=== PATIENT | female | born 1980 | race Caucasian/White ===

== ENCOUNTER → 2017-09-05 | Outpatient (CLI) | payer MEDICARE, MEDICAID ==
[~2017-09-05] MED LIST: GADOBUTROL 7.5 MMOL/7.5 ML (GADAVIST) VIAL IV ONE
--- NOTE | 2017-09-05 11:44 | Diagnostic Imaging Report ---
INDICATION: Diagnosed with pituitary tumor in 2007. Patient denies surgery or other treatments. Patient currently complains of headache. The study is performed for further evaluation. TECHNIQUE: Pre-and post intravenous contrast multiplanar multisequence imaging of the brain was performed utilizing the pituitary protocol. COMPARISON: No prior studies are available for comparison. FINDINGS: The ventricles and sulci are within normal limits. No diffusion restriction is identified. The normal expected flow-voids within the carotid siphons are seen. No acute intra-axial or extra-axial hemorrhage is detected. The corpus callosum is unremarkable. Thin slice dynamic imaging through the sella turcica was performed. The infundibulum is midline. The superior borders of the pituitary gland are concave. No hypoenhancing mass is identified. No suprasellar mass is detected. There is minimal mucosal thickening of the right maxillary sinus. IMPRESSION: Essentially unremarkable MRI of the brain and pituitary. No definite pituitary mass is detected. Dictated by: Dictated on workstation # [id number]
== END ==
LOC: RAD 09:34
PROVIDERS: ATTEND Nurse Practitioner Family
DX: D35.2 Benign neoplasm of pituitary gland (principal); R51 Headache
CPT/HCPCS: 70553

== ENCOUNTER 2017-09-25 17:02 | Emergency (ER) | payer MEDICARE, MEDICAID ==
[~2017-09-25] VITALS: Ht 152.4 cm; Wt 65.8 kg
--- OUTSIDE RECORDS SUMMARY | 2017-09-25 17:10 | XMS REPORT ---
Author Author [facility] Organization [facility] Address [address] [place], [place] [id number] Care Team Providers Care Water Main Inspector Name Role Phone PCP Unavailable Allergies and Adverse Reactions Name Reaction Notes Morphine Sulfate vomiting PENICILLINS hives Reglan increases b/p Plan of Treatment Planned Activity Comments Planned Date Planned Time Plan/Goal Drug screen (amp, alexandra met, THC, opiates, PCP, janet, magdi, methadone, methaq, pro) 11/26/2014 12:00 AM ASSAY OF BLOOD/URIC ACID 12/10/2014 12:00 AM LACTATE (LD) (LDH) ENZYME 12/10/2014 12:00 AM Medications Active Name Start Date Estimated Completion Date SIG Comments Zofran ODT oral tablet,disintegrating 4 mg 05/08/2014 1 PO q 8 hrs prn nausea Zofran ODT oral tablet,disintegrating 4 mg 06/05/2014 1 PO q 8 hrs prn nausea Zofran ODT oral tablet,disintegrating 4 mg 08/05/2014 1 PO q 8 hrs prn nausea Gummy oral tablet,chewable 400 mcg-35 mg -25 mg-5 mg 11/18/2014 chew 1 tablet by oral route daily oxycodone oral capsule 5 mg take 1 capsule (5 mg) by oral route every 6 hours as needed for pain Levaquin oral tablet 750 mg 12/19/2014 12/23/2014 take 1 tablet (750 mg) by oral route once daily for 4 days Name Start Date Expiration Date SIG Comments Zithromax Z-Aurelio Oral tablet 250 mg 08/21/2012 08/26/2012 take 2 tablets (500 mg) by oral route once daily for 1 day then 1 tablet (250 mg) by oral route once daily for 4 days Keflex oral capsule 500 mg 07/30/2013 08/06/2013 take 1 capsule (500 mg) by oral route every 6 hours for 7 days ZOFRAN ODT oral tablet,disintegrating 4 mg 08/06/2013 dissolve 1 tablet by oral route every 6 hours as needed ibuprofen oral tablet 800 mg 08/16/2013 09/15/2013 take 1 tablet (800 mg) by oral route 3 times per day with food prn pain clindamycin HCl oral capsule 300 mg 08/21/2013 08/28/2013 take 1 capsule (300 mg) by oral route 3 times per day for 7 days Levaquin oral tablet 750 mg 08/21/2013 08/24/2013 take 1 tablet (750 mg) by oral route once daily for 3 days oxycodone oral capsule 5 mg 09/05/2013 09/19/2013 take 1-2 capsule (5-10 mg) by oral route every 8 hours as needed for pain Diflucan oral tablet 150 mg 09/19/2013 09/21/2013 take 1 tablet (150 mg) by oral route once for 1 day Ultram oral tablet 50 mg 11/20/2013 take 1 tablet (50 mg) by oral route every 4-6 hours as needed Pt is receiving Suboxone from a specialist in [place] baclofen oral tablet 20 mg 03/22/2014 04/21/2014 take 1 tablet by oral route 3 times a day as needed for 30 days Keflex oral capsule 500 mg 04/02/2014 04/12/2014 take 1 capsule (500 mg) by oral route every 12 hours for 10 days amoxicillin oral capsule 500 mg 04/30/2014 05/07/2014 take 1 capsule (500 mg) by oral route 3 times per day for 7 days Diflucan oral tablet 150 mg 05/03/2014 take 1 tablet (150 mg) by oral route once Vitamin B-6 oral tablet 50 mg 05/08/2014 09/05/2014 take 1 tablet by oral route daily for 30 days azithromycin oral tablet 250 mg 06/09/2014 06/14/2014 take 2 tablets (500 mg) by oral route once, then 1 tab daily for 4 days amoxicillin oral capsule 500 mg 07/25/2014 08/01/2014 take 1 capsule (500 mg ) by oral route every 8 hours for 7 days Zithromax Z-Aurelio oral tablet 250 mg 10/31/2014 11/05/2014 take 2 tablets (500 mg) by oral route once daily for 1 day then 1 tablet (250 mg) by oral route once daily for 4 days Discontinued Name Start Date Discontinued Date SIG Comments Esgic-Plus Oral tablet 50-500-40 mg 08/25/2012 06/07/2013 take 1 tablet by oral route every 4 hours as needed not to exceed 6 tablets per 24hrs Keflex Oral capsule 500 mg 06/05/2013 06/13/2013 take 1 capsule by oral route 2 times a day for 10 days OxyContin Oral tablet extended release 12 hr 10 mg 06/13/2013 take 1 tablet by oral route every 12 hours as needed for migraine headache ranitidine HCl oral capsule 150 mg 06/27/2013 08/31/2013 take 1 capsule (150 mg) by oral route 2 times per day for 30 days ursodiol oral tablet 500 mg 07/02/2013 07/25/2013 take 1 tablet by oral route 2 times a day oxycodone Oral capsule 5 mg 07/10/2013 07/25/2013 take 1 capsules (5 mg) by oral route every 12 hours as needed for pain Dilaudid oral tablet 2 mg 07/25/2013 take 1 tablet (2 mg) by oral route every 4 hours as needed Vistaril oral capsule 25 mg 09/21/2013 05/08/2014 take 1-2 capsules by oral route 3 times a day as needed promethazine oral tablet 25 mg 03/05/2014 05/08/2014 take 1 tablet (25 mg) by oral route every 4-6 hours as needed nicotine transdermal patch 24 hour 21 mg/24 hr 03/12/2014 05/08/2014 apply 1 patch (21 mg) by transdermal route once daily for 4 weeks hydrocodone-ibuprofen oral tablet 5-200 mg 03/22/2014 03/22/2014 take 1 tablet by oral route every 8 hours as needed Migraines K-Tracs showed Suboxone use. Pt brought script back. Suboxone sublingual film 8-2 mg 06/20/2014 place 1 film by sublingual route once daily allow to dissolve slowly in mouth without chewing or swallowing bisacodyl rectal suppository 10 mg 05/08/2014 06/20/2014 insert 1 suppository (10 mg) by rectal route once daily as needed for constipation buprenorphine HCl sublingual tablet, sublingual 8 mg 12/10/2014 place 1 tablet (8 mg) by sublingual route once daily allow to dissolve slowly in mouth without chewing or swallowing for 30 days Zovirax topical ointment 5 % 07/29/2014 09/12/2014 apply to affected area by external route 3 times a day prochlorperazine maleate oral tablet 5 mg 07/29/2014 09/12/2014 1 tab q 6 hrs prn nausea/vomiting Zofran ODT oral tablet,disintegrating 4 mg 09/09/2014 12/10/2014 1 PO Q 8 HRS PRN NAUSEA Amitiza oral capsule 24 mcg 12/10/2014 take 1 capsule (24 mcg) by oral route 2 times per day with food and water Fioricet oral capsule 50-300-40 mg 09/12/2014 12/10/2014 take 1 capsule by oral route every 12 hours as needed for headache. ondansetron oral tablet,disintegrating 4 mg 09/25/2014 11/06/2014 DISSOLVE ONE TABLET IN MOUTH EVERY 8 HOURS NEEDED FOR NAUSEA ranitidine HCl oral capsule 150 mg 10/15/2014 12/19/2014 take 1 capsule (150 mg) by oral route 2 times per day ferrous sulfate oral tablet 325 mg (65 mg iron) 10/24/2014 12/19/2014 take 1 tablet by oral route daily prochlorperazine maleate oral tablet 5 mg 11/20/2014 12/10/2014 take 1 tablet by oral route every 6 hours as needed promethazine oral tablet 25 mg 11/20/2014 12/19/2014 take 1 tablet by oral route qhs prn Nausea amoxicillin oral capsule 500 mg 12/01/2014 12/10/2014 take 2 capsule (1000 mg) by oral route every 12 hours for 10 days Problem List Description Status Onset Migraine Active Hepatitis C Infection Active 06/13/2013 Bipolar disorder, unspecified Active 06/13/2013 wound cellulitis Active Wound Infection, Postop Active Substance Abuse Active 09/19/2013 Vital Signs Date Time BP-Sys(mm[Hg] BP-Preeti(mm[Hg]) HR(bpm) RR(rpm) Temp WT HT HC BMI BSA BMI Percentile O2 Sat(%) 12/19/2014 1:44:00 PM 126 mmHg 85 mmHg 84 bpm 18 rpm 98.2 F 12/10/2014 2:20:00 PM 141 mmHg 88 mmHg 77 bpm 96.4 F 169 lbs 59 in 34.1335 kg/m 1.7864 m 12/01/2014 3:20:00 PM 120 mmHg 78 mmHg 73 bpm 16 rpm 96.7 F 170.25 lbs 59 in 34.39 kg/m2 1.79 m2 98 % 10/31/2014 11:57:00 AM 124 mmHg 70 mmHg 97 bpm 18 rpm 96.9 F 168.125 lbs 59 in 33.9568 kg/m 1.7817 m 98 % 07/25/2014 5:54:00 PM 94 mmHg 58 mmHg 74 bpm 16 rpm 9.4 F 167.5 lbs 59 in 33.83 kg/m2 1.78 m2 99 % 06/09/2014 2:52:00 PM 114 mmHg 70 mmHg 77 bpm 16 rpm 97 F 171 lbs 59 in 34.5375 kg/m 1.7969 m 100 % 05/08/2014 1:51:00 PM 139 mmHg 78 mmHg 84 bpm 96.5 F 174 lbs 59 in 35.14 kg/m2 1.81 m2 05/03/2014 11:50:00 AM 130 mmHg 70 mmHg 83 bpm 18 rpm 175.375 lbs 59 in 35.4211 kg/m 1.8197 m 100 % 04/30/2014 1:52:00 PM 120 mmHg 72 mmHg 86 bpm 18 rpm 97.8 F 172.375 lbs 59 in 34.82 kg/m2 1.80 m2 99 % 03/22/2014 11:08:00 AM 150 mmHg 85 mmHg 87 bpm 20 rpm 97.4 F 183 lbs 59 in 36.9611 kg/m 1.8589 m 98 % 03/12/2014 3:40:00 PM 102 mmHg 70 mmHg 63 bpm 18 rpm 96.9 F 178.375 lbs 59 in 36.03 kg/m2 1.84 m2 98 % 01/15/2014 1:07:00 PM 122 mmHg 78 mmHg 70 bpm 18 rpm 97.7 F 158 lbs 59 in 31.9118 kg/m 1.7272 m 100 % 11/05/2013 1:45:00 PM 122 mmHg 88 mmHg 84 bpm 18 rpm 97.3 F 146.6 lbs 59 in 29.61 kg/m2 1.66 m2 100 % 09/19/2013 3:11:00 PM 118 mmHg 77 mmHg 75 bpm 96.8 F 142 lbs 59 in 28.6802 kg/m 1.6375 m 08/31/2013 8:57:00 AM 100 mmHg 74 mmHg 64 bpm 96.7 F 151 lbs 59 in 30.50 kg/m2 1.69 m2 08/16/2013 2:19:00 PM 127 mmHg 90 mmHg 81 bpm 96.7 F 155 lbs 59 in 31.3059 kg/m 1.7108 m 08/09/2013 11:35:00 AM 130 mmHg 69 mmHg 68 bpm 97.7 F 155 lbs 59 in 31.31 kg/m2 1.71 m2 08/03/2013 9:01:00 AM 131 mmHg 81 mmHg 73 bpm 97.6 F 157.5 lbs 59 in 31.8108 kg/m 1.7245 m 07/30/2013 1:45:00 PM 126 mmHg 75 mmHg 84 bpm 96.5 F 159 lbs 59 in 32.11 kg/m2 1.73 m2 07/25/2013 1:32:00 PM 121 mmHg 77 mmHg 86 bpm 96.7 F 165 lbs 59 in 33.3256 kg/m 1.7651 m 07/10/2013 1:56:00 PM 129 mmHg 79 mmHg 90 bpm 97.7 F 171 lbs 59 in 34.54 kg/m2 1.80 m2 06/07/2013 3:08:00 PM 139 mmHg 71 mmHg 86 bpm 96.5 F 175 lbs 59 in 35.3454 kg/m 1.8178 m 06/05/2013 10:19:00 AM 119 mmHg 80 mmHg 104 bpm 20 rpm 96.8 F 173 lbs 59 in 34.94 kg/m2 1.81 m2 99 % 08/21/2012 2:27:00 PM 122 mmHg 78 mmHg 71 bpm 20 rpm 96.7 F 141.8 lbs 59 in 28.6398 kg/m 1.6363 m 100 % Social History Name Description Comments Single Alcohol social use Tobacco Current every day smoker History of Procedures Date Ordered Description Order Status 08/21/2012 12:00 AM US EXAM ABDOM COMPLETE Returned 08/21/2012 12:00 AM COMPLETE CBC W/AUTO DIFF WBC Returned 08/21/2012 12:00 AM COMPREHEN METABOLIC PANEL Returned 08/21/2012 12:00 AM ASSAY OF AMYLASE Returned 08/21/2012 12:00 AM ASSAY OF LIPASE Returned 08/21/2012 12:00 AM ASSAY THYROID STIM HORMONE Returned 08/21/2012 12:00 AM LIPID PANEL Returned 08/31/2012 12:00 AM HEPATIC FUNCTION PANEL Returned 08/31/2012 12:00 AM ACUTE HEPATITIS PANEL Returned 06/05/2013 12:00 AM URINALYSIS AUTO W/O SCOPE Reviewed 06/05/2013 12:00 AM URINALYSIS AUTO W/SCOPE Returned 06/07/2013 12:00 AM LACTATE (LD) (LDH) ENZYME Returned 06/07/2013 12:00 AM ASSAY OF BLOOD/URIC ACID Returned 06/07/2013 12:00 AM COMPLETE CBC W/AUTO DIFF WBC Returned 06/07/2013 12:00 AM COMPREHEN METABOLIC PANEL Returned 06/13/2013 12:00 AM Urine drug screen Returned 06/07/2013 12:00 AM COMPLETE CBC W/AUTO DIFF WBC Returned 06/07/2013 12:00 AM COMPREHEN METABOLIC PANEL Returned 06/07/2013 12:00 AM LACTATE (LD) (LDH) ENZYME Reviewed 06/07/2013 12:00 AM ASSAY OF BLOOD/URIC ACID Returned 06/20/2013 12:00 AM BIOPHYS PROFIL W/O NST Returned 06/20/2013 12:00 AM AMNIOTIC FLUID SCAN Reviewed 06/20/2013 12:00 AM COMPLETE CBC W/AUTO DIFF WBC Returned 06/20/2013 12:00 AM COMPREHEN METABOLIC PANEL Returned 06/20/2013 12:00 AM ASSAY OF BLOOD/URIC ACID Returned 06/20/2013 12:00 AM ASSAY OF LDH ENZYMES Returned 06/27/2013 12:00 AM COMPLETE CBC W/AUTO DIFF WBC Returned 06/27/2013 12:00 AM COMPREHEN METABOLIC PANEL Returned 06/27/2013 12:00 AM ASSAY OF BLOOD/URIC ACID Returned 06/27/2013 12:00 AM ASSAY OF LDH ENZYMES Returned 07/04/2013 12:00 AM OB US >/=14 WKS SNGL FETUS Returned 07/02/2013 12:00 AM COMPLETE CBC W/AUTO DIFF WBC Returned 07/02/2013 12:00 AM COMPREHEN METABOLIC PANEL Returned 07/02/2013 12:00 AM LACTATE (LD) (LDH) ENZYME Reviewed 07/02/2013 12:00 AM ASSAY OF BLOOD/URIC ACID Returned 07/02/2013 12:00 AM BILE ACIDS TOTAL Returned 07/10/2013 12:00 AM COMPLETE CBC W/AUTO DIFF WBC Returned 07/10/2013 12:00 AM COMPREHEN METABOLIC PANEL Returned 07/10/2013 12:00 AM Type and screen Returned 07/30/2013 12:00 AM CULTURE OTHR SPECIMN AEROBIC Returned 09/19/2013 12:00 AM Urine drug screen Reviewed 01/15/2014 12:00 AM THER/PROPH/DIAG INJ SC/IM Reviewed 01/28/2014 12:00 AM CHORIONIC GONADOTROPIN TEST Returned 03/12/2014 12:00 AM BEHAV CHNG SMOKING 3-10 MIN Reviewed 03/22/2014 12:[address] HEAD/BRAIN W/DYE Returned 04/17/2014 2:37 PM URINE TEST Reviewed 05/15/2014 12:00 AM TRANSVAGINAL US OBSTETRIC Reviewed 05/15/2014 12:00 AM OB US < 14 WKS SINGLE FETUS Returned 05/08/2014 12:00 AM N.GONORRHOEAE DNA AMP PROB Returned 05/08/2014 12:00 AM CHLAMYDIA CULTURE Returned 05/08/2014 12:00 AM HIV-1ANTIBODY Returned 05/08/2014 12:00 AM CYTOPATH C/V THIN LAYER Returned 05/08/2014 12:00 AM URINALYSIS AUTO W/SCOPE Returned 05/08/2014 12:00 AM OBSTETRIC PANEL Returned 05/08/2014 12:00 AM Urine Drug Screen Returned 05/08/2014 12:00 AM SPECIMEN HANDLING OFFICE-LAB Reviewed 05/23/2014 12:00 AM COMPREHEN METABOLIC PANEL Returned 05/23/2014 12:00 AM HEPATITIS C REVRS [id number] Returned 05/23/2014 12:00 AM Urine Drug Screen Returned 09/12/2014 12:00 AM OB US LIMITED FETUS(S) Returned 10/10/2014 12:00 AM GLUCOSE TEST Returned 10/10/2014 12:00 AM COMPLETE CBC W/AUTO DIFF WBC Returned 10/10/2014 12:00 AM Type and screen Returned 10/10/2014 12:00 AM COMPREHEN METABOLIC PANEL Returned 10/10/2014 12:00 AM HEPATITIS C REVRS [id number] Returned 10/24/2014 12:00 AM BIOPHYS PROFIL W/O NST Returned 10/24/2014 12:00 AM AMNIOTIC FLUID SCAN Returned 10/24/2014 12:00 AM COMPREHEN METABOLIC PANEL Returned 10/24/2014 12:00 AM BILE ACIDS TOTAL Returned 11/06/2014 12:00 AM COMPLETE CBC W/AUTO DIFF WBC Reviewed 11/06/2014 12:00 AM COMPREHEN METABOLIC PANEL Reviewed 11/06/2014 12:00 AM HEPATITIS C REVRS [id number] Reviewed 11/06/2014 12:00 AM MASS SPECTROMETRY QUANT Reviewed 11/20/2014 12:00 AM CULTURE OTHR SPECIMN AEROBIC Returned 12/10/2014 12:00 AM DRUG SCREEN CLASS LIST A Returned 12/10/2014 12:00 AM COMPLETE CBC W/AUTO DIFF WBC Returned 12/10/2014 12:00 AM COMPREHEN METABOLIC PANEL Returned Results Summary Data and Description Results 09/05/2012 9:20 AM WBC 7.6 RBC 4.88 HGB 13.80 g/dLHCT 41.70 %MCV 86.0 fLMCH 28.30 pgMCHC 33.10 g/dLRDW CV 14.10 %MPV 9.90 fLPLT 256 %NEUT 61.80 %%LYMP 27.80 %%MONO 3.90 %%EOS 6.20 %%BASO 0.30 %#NEUT 4.71 #LYMP 2.12 #MONO 0.30 #EOS 0.47 #BASO 0.02 GLUCOSE 91.0 mg/dLSODIUM 140.0 mmol/LPOTASSIUM 4.50 mmol/ LCHLORIDE 110.0 mmol/LCO2 22.0 mmol/LBUN 14.0 mg/dLCREATININE 0.80 mg/dLSGOT/ AST 16.0 IU/LSGPT/ALT 17.0 IU/LALK PHOS 83.0 IU/LTOTAL PROTEIN 7.0 g/dLALBUMIN 4.20 g/dLTOTAL BILI 0.30 mg/dLCALCIUM 9.50 mg/dLeGFR 60 AMYLASE 79 IU/ LTRIGLYCERIDES 91.0 mg/dLCHOLESTEROL 168.0 mg/dLHDL 38.0 mg/dLLDL (CALC) 112.0 mg/dLDIRECT BILI 0.10 mg/dLLIPASE 24.0 U/LTSH 4.230 uIU/mL 06/05/2013 8:28 PM COLOR DK YELLOW APPEARANCE HAZY SPEC GRAV 1.015 pH 6.5 PROTEIN NEGATIVE GLUCOSE NEGATIVE KETONE TRACE BILIRUBIN LARGE BLOOD MODERATE NITRITE NEGATIVE LEUK SCREEN NEGATIVE CASTS/LPF NEGATIVE CRYSTALS TRACE CA OX MUCOUS THRDS FEW BACTERIA 1+ EPITH CELLS 2++ SQUAMOUS TRICHOMONAS NEGATIVE YEAST NEGATIVE 06/07/2013 6:15 PM ACETAMINOPHEN <3.00 UG/MLDIRECT BILI 2.60 mg/dLAMYLASE 35 IU/LLIPASE <4 U/LGLUCOSE 81.0 mg/dLSODIUM 133.0 mmol/LPOTASSIUM 3.70 mmol/ LCHLORIDE 101.0 mmol/LCO2 26.0 mmol/LBUN 5.0 mg/dLCREATININE 0.60 mg/dLSGOT/AST 176.0 IU/LSGPT/ALT 531.0 IU/LALK PHOS 300.0 IU/LTOTAL PROTEIN 5.60 g/dLALBUMIN 2.70 g/dLTOTAL BILI 3.20 mg/dLCALCIUM 8.60 mg/dLeGFR >60 mL/min/1.73 m2WBC 12.1 RBC 3.83 HGB 10.50 g/dLHCT 31.90 %MCV 83.0 fLMCH 27.40 pgMCHC 32.90 g/dLRDW CV 14.30 %MPV 11.50 fLPLT 138 %NEUT 53.70 %%LYMP 34.40 %%MONO 7.80 %%EOS 3.90 %% BASO 0.20 %#NEUT 6.48 #LYMP 4.16 #MONO 0.94 #EOS 0.47 #BASO 0.03 06/07/2013 7:45 PM PROTIME 10.20 secsINR 1.0 PTT 28.30 secsLDH 354.0 IU/LURIC ACID 5.5 mg/dL 06/13/2013 2:58 PM GLUCOSE 93.0 mg/dLSODIUM 139.0 mmol/LPOTASSIUM 5.0 mmol/ LCHLORIDE 105.0 mmol/LCO2 24.0 mmol/LBUN 8.0 mg/dLCREATININE 0.70 mg/dLSGOT/AST 114.0 IU/LSGPT/ALT 170.0 IU/LALK PHOS 361.0 IU/LTOTAL PROTEIN 7.50 g/dLALBUMIN 3.80 g/dLTOTAL BILI 1.60 mg/dLCALCIUM 9.10 mg/dLeGFR >60 mL/min/1.73 m2URIC ACID 4.7 mg/dLLDH 285.0 IU/LWBC 12.9 RBC 4.20 HGB 11.50 g/dLHCT 36.30 %MCV 86.0 fLMCH 27.40 pgMCHC 31.70 g/dLRDW CV 15.10 %MPV 10.90 fLPLT 424 %NEUT 53.20 %% LYMP 32.20 %%MONO 10.90 %%EOS 3.50 %%BASO 0.20 %#NEUT 6.84 #LYMP 4.15 #MONO 1.40 #EOS 0.45 #BASO 0.03 EOS 1.0 % 06/20/2013 5:20 PM WBC 11.3 RBC 4.14 HGB 11.40 g/dLHCT 35.80 %MCV 87.0 fLMCH 27.50 pgMCHC 31.80 g/dLRDW CV 15.10 %MPV 10.60 fLPLT 369 %NEUT 61.50 %%LYMP 25.60 %%MONO 10.40 %%EOS 2.30 %%BASO 0.20 %#NEUT 6.95 #LYMP 2.89 #MONO 1.18 # EOS 0.26 #BASO 0.02 URIC ACID 5.5 mg/dLGLUCOSE 90.0 mg/dLSODIUM 136.0 mmol/ LPOTASSIUM 4.0 mmol/LCHLORIDE 105.0 mmol/LCO2 22.0 mmol/LBUN 8.0 mg/ dLCREATININE 0.70 mg/dLSGOT/AST 50.0 IU/LSGPT/ALT 67.0 IU/LALK PHOS 205.0 IU/ LTOTAL PROTEIN 6.90 g/dLALBUMIN 3.60 g/dLTOTAL BILI 0.80 mg/dLCALCIUM 9.30 mg/ dLeGFR >60 mL/min/1.73 m2 06/29/2013 12:00 PM WBC 9.2 RBC 4.13 HGB 11.50 g/dLHCT 35.30 %MCV 86.0 fLMCH 27.80 pgMCHC 32.60 g/dLRDW CV 14.90 %MPV 11.30 fLPLT 232 %NEUT 59.90 %%LYMP 27.80 %%MONO 6.80 %%EOS 5.30 %%BASO 0.20 %#NEUT 5.52 #LYMP 2.57 #MONO 0.63 #EOS 0.49 #BASO 0.02 URIC ACID 4.9 mg/dLGLUCOSE 104.0 mg/dLSODIUM 139.0 mmol/ LPOTASSIUM 3.90 mmol/LCHLORIDE 107.0 mmol/LCO2 22.0 mmol/LBUN 9.0 mg/ dLCREATININE 0.70 mg/dLSGOT/AST 45.0 IU/LSGPT/ALT 65.0 IU/LALK PHOS 199.0 IU/ LTOTAL PROTEIN 7.0 g/dLALBUMIN 3.50 g/dLTOTAL BILI 0.60 mg/dLCALCIUM 10.20 mg/ dLeGFR >60 mL/min/1.73 m2 07/02/2013 7:49 PM LDH 199.0 IU/LURIC ACID 5.0 mg/dLGLUCOSE 91.0 mg/dLSODIUM 136.0 mmol/LPOTASSIUM 3.70 mmol/LCHLORIDE 108.0 mmol/LCO2 21.0 mmol/LBUN 8.0 mg/ dLCREATININE 0.70 mg/dLSGOT/AST 34.0 IU/LSGPT/ALT 58.0 IU/LALK PHOS 204.0 IU/ LTOTAL PROTEIN 6.70 g/dLALBUMIN 3.30 g/dLTOTAL BILI 0.60 mg/dLCALCIUM 9.30 mg/ dLeGFR >60 mL/min/1.73 m2WBC 11.0 RBC 3.82 HGB 10.60 g/dLHCT 32.70 %MCV 86.0 fLMCH 27.70 pgMCHC 32.40 g/dLRDW CV 15.10 %MPV 11.40 fLPLT 212 %NEUT 61.60 %% LYMP 27.80 %%MONO 6.70 %%EOS 3.70 %%BASO 0.20 %#NEUT 6.75 #LYMP 3.04 #MONO 0.73 #EOS 0.41 #BASO 0.02 07/16/2013 2:30 PM WBC 9.7 RBC 4.22 HGB 11.50 g/dLHCT 36.10 %MCV 86.0 fLMCH 27.30 pgMCHC 31.90 g/dLRDW CV 15.50 %MPV 11.20 fLPLT 285 %NEUT 71.40 %%LYMP 19.30 %%MONO 6.0 %%EOS 3.10 %%BASO 0.20 %#NEUT 6.94 #LYMP 1.88 #MONO 0.58 #EOS 0.30 #BASO 0.02 GLUCOSE 121.0 mg/dLSODIUM 136.0 mmol/LPOTASSIUM 3.70 mmol/ LCHLORIDE 108.0 mmol/LCO2 20.0 mmol/LBUN 8.0 mg/dLCREATININE 0.70 mg/dLSGOT/AST 20.0 IU/LSGPT/ALT 17.0 IU/LALK PHOS 225.0 IU/LTOTAL PROTEIN 6.30 g/dLALBUMIN 3.0 g/dLTOTAL BILI 0.30 mg/dLCALCIUM 9.50 mg/dLeGFR >60 mL/min/1.73 m2ABO/Rh Type O Positive 07/17/2013 12:35 PM GLUCOSE 87.0 mg/dLSODIUM 136.0 mmol/LPOTASSIUM 3.70 mmol/ LCHLORIDE 108.0 mmol/LCO2 20.0 mmol/LBUN 7.0 mg/dLCREATININE 0.60 mg/dLSGOT/AST 21.0 IU/LSGPT/ALT 13.0 IU/LALK PHOS 178.0 IU/LTOTAL PROTEIN 5.20 g/dLALBUMIN 2.40 g/dLTOTAL BILI 0.40 mg/dLCALCIUM 8.90 mg/dLeGFR >60 mL/min/1.73 m2WBC 15.5 RBC 3.66 HGB 9.90 g/dLHCT 31.20 %MCV 85.0 fLMCH 27.0 pgMCHC 31.70 g/dLRDW CV 15.60 %MPV 11.10 fLPLT 260 07/17/2013 4:00 PM WBC 16.4 RBC 3.33 HGB 9.20 g/dLHCT 28.30 %MCV 85.0 fLMCH 27.60 pgMCHC 32.50 g/dLRDW CV 15.50 %MPV 11.10 fLPLT 251 07/18/2013 7:35 AM WBC 10.9 RBC 2.58 HGB 7.20 g/dLHCT 22.0 %MCV 85.0 fLMCH 27.90 pgMCHC 32.70 g/dLRDW CV 15.80 %MPV 11.0 fLPLT 235 07/18/2013 8:55 AM ABO/Rh Recheck O Positive 07/18/2013 4:55 PM WBC 12.6 RBC 3.33 HGB 9.30 g/dLHCT 28.10 %MCV 84.0 fLMCH 27.90 pgMCHC 33.10 g/dLRDW CV 15.0 %MPV 10.90 fLPLT 221 07/19/2013 8:20 AM WBC 12.0 RBC 3.19 HGB 8.90 g/dLHCT 27.0 %MCV 85.0 fLMCH 27.90 pgMCHC 33.0 g/dLRDW CV 15.20 %MPV 10.40 fLPLT 236 GLUCOSE 111.0 mg/ dLSODIUM 135.0 mmol/LPOTASSIUM 3.90 mmol/LCHLORIDE 106.0 mmol/LCO2 20.0 mmol/ LBUN 8.0 mg/dLCREATININE 0.60 mg/dLSGOT/AST 24.0 IU/LSGPT/ALT 14.0 IU/LALK PHOS 137.0 IU/LTOTAL PROTEIN 5.20 g/dLALBUMIN 2.40 g/dLTOTAL BILI 0.40 mg/dLCALCIUM 8.50 mg/dLeGFR >60 mL/min/1.73 m2 08/03/2013 10:30 AM BETA HCG QUANT 8.0 mIU/mL 08/03/2013 12:30 PM WBC 6.7 RBC 4.19 HGB 11.30 g/dLHCT 36.10 %MCV 86.0 fLMCH 27.0 pgMCHC 31.30 g/dLRDW CV 15.0 %MPV 9.0 fLPLT 352 %NEUT 63.40 %%LYMP 28.60 %% MONO 5.0 %%EOS 2.70 %%BASO 0.30 %#NEUT 4.22 #LYMP 1.90 #MONO 0.33 #EOS 0.18 # BASO 0.02 GLUCOSE 107.0 mg/dLSODIUM 142.0 mmol/LPOTASSIUM 4.0 mmol/LCHLORIDE 110.0 mmol/LCO2 21.0 mmol/LBUN 10.0 mg/dLCREATININE 0.80 mg/dLSGOT/AST 20.0 IU/ LSGPT/ALT 16.0 IU/LALK PHOS 121.0 IU/LTOTAL PROTEIN 6.50 g/dLALBUMIN 3.30 g/ dLTOTAL BILI 0.40 mg/dLCALCIUM 8.80 mg/dLeGFR >60 mL/min/1.73 m2 01/28/2014 3:25 PM BETA HCG QUANT <1 MIU/ML 04/17/2014 2:37 PM HCG Ur Ql positive 05/08/2014 3:20 PM WBC 6.8 RBC 4.48 HGB 12.70 g/dLHCT 37.70 %MCV 84.0 fLMCH 28.30 pgMCHC 33.70 g/dLRDW CV 14.0 %MPV 10.30 fLPLT 254 %NEUT 57.20 %%LYMP 31.20 %%MONO 8.20 %%EOS 3.10 %%BASO 0.30 %#NEUT 3.90 #LYMP 2.13 #MONO 0.56 #EOS 0.21 #BASO 0.02 HIV AG/AB COMBO 0.15 HBsAg Screen Negative 05/08/2014 5:14 PM COLOR YELLOW APPEARANCE CLEAR SPEC GRAV >=1.030 pH 6.0 PROTEIN NEGATIVE GLUCOSE NEGATIVE KETONE NEGATIVE BILIRUBIN NEGATIVE BLOOD NEGATIVE NITRITE NEGATIVE LEUK SCREEN NEGATIVE CASTS/LPF NEGATIVE CRYSTALS NEGATIVE MUCOUS THRDS NEGATIVE BACTERIA FEW EPITH CELLS FEW SQUAMOUS TRICHOMONAS NEGATIVE YEAST NEGATIVE 05/24/2014 1:10 PM GLUCOSE 89.0 mg/dLSODIUM 135.0 mmol/LPOTASSIUM 3.70 mmol/ LCHLORIDE 104.0 mmol/LCO2 21.0 mmol/LBUN 10.0 mg/dLCREATININE 0.70 mg/dLSGOT/ AST 27.0 IU/LSGPT/ALT 46.0 IU/LALK PHOS 98.0 IU/LTOTAL PROTEIN 7.30 g/dLALBUMIN 4.10 g/dLTOTAL BILI 0.20 mg/dLCALCIUM 9.60 mg/dLeGFR 60 10/18/2014 3:15 PM WBC 10.5 RBC 3.86 HGB 10.50 g/dLHCT 32.80 %MCV 85.0 fLMCH 27.20 pgMCHC 32.0 g/dLRDW CV 13.60 %MPV 10.70 fLPLT 210 %NEUT 67.90 %%LYMP 22.40 %%MONO 6.30 %%EOS 3.20 %%BASO 0.20 %#NEUT 7.14 #LYMP 2.35 #MONO 0.66 #EOS 0.34 #BASO 0.02 GLUCOSE 98.0 mg/dLSODIUM 138.0 mmol/LPOTASSIUM 3.70 mmol/ LCHLORIDE 106.0 mmol/LCO2 22.0 mmol/LBUN 7.0 mg/dLCREATININE 0.60 mg/dLSGOT/AST 45.0 IU/LSGPT/ALT 47.0 IU/LALK PHOS 181.0 IU/LTOTAL PROTEIN 6.20 g/dLALBUMIN 3.0 g/dLTOTAL BILI 0.20 mg/dLCALCIUM 8.30 mg/dLeGFR >60 mL/min/1.73 m2 10/28/2014 11:20 AM GLUCOSE 105.0 mg/dLSODIUM 136.0 mmol/LPOTASSIUM 4.0 mmol/ LCHLORIDE 107.0 mmol/LCO2 19.0 mmol/LBUN 7.0 mg/dLCREATININE 0.60 mg/dLSGOT/AST 29.0 IU/LSGPT/ALT 35.0 IU/LALK PHOS 208.0 IU/LTOTAL PROTEIN 6.30 g/dLALBUMIN 3.0 g/dLTOTAL BILI 0.20 mg/dLCALCIUM 8.50 mg/dLeGFR >60 mL/min/1.73 m2 11/19/2014 5:36 PM WBC 8.9 RBC 4.23 HGB 11.0 g/dLHCT 34.90 %MCV 83.0 fLMCH 26.0 pgMCHC 31.50 g/dLRDW CV 14.50 %MPV 11.20 fLPLT 237 %NEUT 68.10 %%LYMP 24.90 %%MONO 5.40 %%EOS 1.50 %%BASO 0.10 %#NEUT 6.09 #LYMP 2.22 #MONO 0.48 #EOS 0.13 #BASO 0.01 GLUCOSE 85.0 mg/dLSODIUM 136.0 mmol/LPOTASSIUM 4.50 mmol/ LCHLORIDE 105.0 mmol/LCO2 22.0 mmol/LBUN 9.0 mg/dLCREATININE 0.60 mg/dLSGOT/AST 32.0 IU/LSGPT/ALT 43.0 IU/LALK PHOS 328.0 IU/LTOTAL PROTEIN 6.80 g/dLALBUMIN 3.20 g/dLTOTAL BILI 0.20 mg/dLCALCIUM 9.0 mg/dLeGFR >60 mL/min/1.73 m2 12/10/2014 3:35 PM WBC 8.0 RBC 4.23 HGB 10.70 g/dLHCT 33.90 %MCV 80.0 fLMCH 25.30 pgMCHC 31.60 g/dLRDW CV 15.20 %MPV 11.90 fLPLT 204 %NEUT 67.90 %%LYMP 23.80 %%MONO 6.20 %%EOS 1.90 %%BASO 0.20 %#NEUT 5.43 #LYMP 1.91 #MONO 0.50 #EOS 0.15 #BASO 0.02 URIC ACID 6.6 mg/dLLDH 189.0 IU/LGLUCOSE 80.0 mg/dLSODIUM 135.0 mmol/LPOTASSIUM 4.20 mmol/LCHLORIDE 108.0 mmol/LCO2 20.0 mmol/LBUN 9.0 mg/ dLCREATININE 0.70 mg/dLSGOT/AST 20.0 IU/LSGPT/ALT 17.0 IU/LALK PHOS 504.0 IU/ LTOTAL PROTEIN 6.40 g/dLALBUMIN 2.30 g/dLTOTAL BILI 0.40 mg/dLCALCIUM 9.0 mg/ dLeGFR >60 mL/min/1.73 m2 12/11/2014 11:42 PM Cannabinoids (THC) NEGATIVE Phencyclidine (PCP) NEGATIVE Cocaine NEGATIVE Methamphetamine NEGATIVE Opiates NEGATIVE Amphetamine NEGATIVE Benzodiazepines NEGATIVE Methadone NEGATIVE Barbiturates NEGATIVE Oxycodone NEGATIVE Propoxyphene (PPX) NEGATIVE 12/12/2014 7:50 AM WBC 17.3 RBC 3.42 HGB 8.70 g/dLHCT 27.40 %MCV 80.0 fLH 25.40 pgMCHC 31.80 g/dLRDW CV 15.40 %MPV 10.90 fLPLT 201 %NEUT 81.90 %%LYMP 12.90 %%MONO 4.80 %%EOS 0.30 %%BASO 0.10 %#NEUT 14.13 #LYMP 2.23 #MONO 0.83 # EOS 0.06 #BASO 0.02 GLUCOSE 113.0 mg/dLSODIUM 134.0 mmol/LPOTASSIUM 4.40 mmol/ LCHLORIDE 109.0 mmol/LCO2 19.0 mmol/LBUN 10.0 mg/dLCREATININE 0.70 mg/dLSGOT/ AST 22.0 IU/LSGPT/ALT 12.0 IU/LALK PHOS 374.0 IU/LTOTAL PROTEIN 4.50 g/ dLALBUMIN 2.20 g/dLTOTAL BILI 0.30 mg/dLCALCIUM 8.0 mg/dLeGFR >60 mL/min/1.73 m2 12/12/2014 2:05 PM WBC 14.5 RBC 2.87 HGB 7.30 g/dLHCT 23.10 %MCV 81.0 fLMCH 25.40 pgMCHC 31.60 g/dLRDW CV 15.30 %MPV 10.90 fLPLT 174 %NEUT 84.70 %%LYMP 9.20 %%MONO 5.90 %%EOS 0.10 %%BASO 0.10 %#NEUT 12.24 #LYMP 1.33 #MONO 0.86 #EOS 0.02 #BASO 0.02 12/12/2014 3:00 PM GLUCOSE 115.0 mg/dLSODIUM 132.0 mmol/LPOTASSIUM 5.20 mmol/ LCHLORIDE 105.0 mmol/LCO2 21.0 mmol/LBUN 11.0 mg/dLCREATININE 0.70 mg/dLCALCIUM 7.80 mg/dLeGFR >60 mL/min/1.73 m2 12/12/2014 10:05 PM WBC 11.9 RBC 3.38 HGB 9.0 g/dLHCT 28.0 %MCV 83.0 fLMCH 26.60 pgMCHC 32.10 g/dLRDW CV 16.10 %MPV 11.30 fLPLT 178 %NEUT 83.30 %%LYMP 12.0 %%MONO 4.50 %%EOS 0.10 %%BASO 0.10 %#NEUT 9.89 #LYMP 1.42 #MONO 0.53 #EOS 0.01 #BASO 0.01 PROTIME 9.40 secsINR 0.9 PTT 27.10 secsFIBRINOGEN 432.0 mg/dL 12/13/2014 7:10 AM WBC 11.8 RBC 3.03 HGB 8.20 g/dLHCT 24.90 %MCV 82.0 fLMCH 27.10 pgMCHC 32.90 g/dLRDW CV 16.20 %MPV 11.70 fLPLT 191 %NEUT 82.10 %%LYMP 12.80 %%MONO 4.90 %%EOS 0.10 %%BASO 0.10 %#NEUT 9.69 #LYMP 1.51 #MONO 0.58 #EOS 0.01 #BASO 0.01 GLUCOSE 92.0 mg/dLSODIUM 135.0 mmol/LPOTASSIUM 4.30 mmol/ LCHLORIDE 107.0 mmol/LCO2 21.0 mmol/LBUN 7.0 mg/dLCREATININE 0.60 mg/dLSGOT/AST 20.0 IU/LSGPT/ALT 11.0 IU/LALK PHOS 268.0 IU/LTOTAL PROTEIN 4.70 g/dLALBUMIN 2.10 g/dLTOTAL BILI 0.30 mg/dLCALCIUM 8.0 mg/dLeGFR >60 mL/min/1.73 m2 12/13/2014 8:00 AM PROTIME 9.40 secsINR 0.9 PTT 28.50 secsFIBRINOGEN 470.0 mg/dL 12/13/2014 12:05 PM PROTIME 9.30 secsINR 0.9 PTT 28.90 secsFIBRINOGEN 488.0 mg/ dLWBC 11.3 RBC 3.01 HGB 8.10 g/dLHCT 24.80 %MCV 82.0 fLMCH 26.90 pgMCHC 32.70 g/ dLRDW CV 16.0 %MPV 11.0 fLPLT 187 %NEUT 83.70 %%LYMP 10.70 %%MONO 5.40 %%EOS 0.10 %%BASO 0.10 %#NEUT 9.48 #LYMP 1.21 #MONO 0.61 #EOS 0.01 #BASO 0.01 GLUCOSE 97.0 mg/dLSODIUM 138.0 mmol/LPOTASSIUM 4.40 mmol/LCHLORIDE 108.0 mmol/LCO2 22.0 mmol/LBUN 7.0 mg/dLCREATININE 0.60 mg/dLSGOT/AST 18.0 IU/LSGPT/ALT 12.0 IU/LALK PHOS 284.0 IU/LTOTAL PROTEIN 4.30 g/dLALBUMIN 2.20 g/dLTOTAL BILI 0.30 mg/ dLCALCIUM 7.80 mg/dLeGFR >60 mL/min/1.73 m2 12/14/2014 7:30 AM WBC 12.3 RBC 2.72 HGB 7.30 g/dLHCT 22.60 %MCV 83.0 fLMCH 26.80 pgMCHC 32.30 g/dLRDW CV 16.60 %MPV 10.60 fLPLT 217 %NEUT 86.50 %%LYMP 9.0 %%MONO 4.20 %%EOS 0.20 %%BASO 0.10 %#NEUT 10.63 #LYMP 1.11 #MONO 0.51 #EOS 0.02 #BASO 0.01 GLUCOSE 85.0 mg/dLSODIUM 136.0 mmol/LPOTASSIUM 4.20 mmol/LCHLORIDE 107.0 mmol/LCO2 22.0 mmol/LBUN 11.0 mg/dLCREATININE 0.60 mg/dLSGOT/AST 19.0 IU/ LSGPT/ALT 7.0 IU/LALK PHOS 230.0 IU/LTOTAL PROTEIN 4.90 g/dLALBUMIN 2.20 g/ dLTOTAL BILI 0.50 mg/dLCALCIUM 7.90 mg/dLeGFR >60 mL/min/1.73 m2 12/15/2014 7:10 AM GLUCOSE 92.0 mg/dLSODIUM 137.0 mmol/LPOTASSIUM 3.90 mmol/ LCHLORIDE 107.0 mmol/LCO2 20.0 mmol/LBUN 16.0 mg/dLCREATININE 0.60 mg/dLSGOT/ AST 25.0 IU/LSGPT/ALT 12.0 IU/LALK PHOS 231.0 IU/LTOTAL PROTEIN 5.20 g/ dLALBUMIN 2.30 g/dLTOTAL BILI 1.10 mg/dLCALCIUM 8.10 mg/dLeGFR >60 mL/min/1.73 m2WBC 9.5 RBC 3.23 HGB 8.80 g/dLHCT 27.20 %MCV 84.0 fLMCH 27.20 pgMCHC 32.40 g/ dLRDW CV 16.50 %MPV 10.90 fLPLT 240 %NEUT 80.20 %%LYMP 12.40 %%MONO 6.60 %%EOS 0.60 %%BASO 0.20 %#NEUT 7.64 #LYMP 1.18 #MONO 0.63 #EOS 0.06 #BASO 0.02 12/16/2014 6:05 AM GLUCOSE 108.0 mg/dLSODIUM 139.0 mmol/LPOTASSIUM 3.40 mmol/ LCHLORIDE 107.0 mmol/LCO2 21.0 mmol/LBUN 12.0 mg/dLCREATININE 0.60 mg/dLCALCIUM 8.20 mg/dLeGFR >60 mL/min/1.73 m2WBC 9.3 RBC 3.62 HGB 9.90 g/dLHCT 30.70 %MCV 85.0 fLMCH 27.30 pgMCHC 32.20 g/dLRDW CV 16.50 %MPV 10.20 fLPLT 310 %NEUT 74.60 %%LYMP 17.0 %%MONO 5.90 %%EOS 2.30 %%BASO 0.20 %#NEUT 6.96 #LYMP 1.59 #MONO 0.55 #EOS 0.21 #BASO 0.02 EOS 3.0 % History Of Immunizations Name Date Admin Mfg Name Mfg Code Trade Name Lot# Route Inj Vis Given Vis Pub CVX Influenza 06/06/2014 sanofi pasteur PMC Fluzone [id number] Intramuscular Left Deltoid 06/06/2014 03/26/2014 141 History of Past Illness Name Date of Onset Comments Migraine Pituitary tumor Hepatitis C Infection 06/13/2013 Bipolar disorder, unspecified 06/13/2013 Substance Abuse 09/19/2013 Sinusitis, Acute Aug 21 2012 2:30PM Upper Respiratory Infections Aug 21 2012 2:30PM Abdominal Pain, LUQ Aug 21 2012 2:30PM Pituitary Gland Disorder Aug 21 2012 2:30PM Thyroid Disorder Aug 21 2012 2:30PM Screening for Ischemic Heart Disease Aug 21 2012 2:30PM Hepatomegaly Aug 31 2012 8:15AM Carrier or suspected carrier of hepatitis C Sep 06 2012 9:16AM Hepatitis C Infection Oct 30 2012 10:22AM Hematuria Jun 05 2013 10:25AM Lumbar Pain Jun 05 2013 10:25AM Suprapubic Pain Jun 05 2013 10:25AM History of Intrauterine growth restriction: High Risk Jun 07 2013 3:22PM Hepatitis C Infection Jun 07 2013 3:22PM Bipolar disorder, unspecified Jun 07 2013 3:22PM Abdominal Pain, RUQ Jun 07 2013 3:22PM Hepatitis C Infection Jun 13 2013 2:38PM Hepatitis C Infection Jun 13 2013 2:51PM History of Intrauterine growth restriction: High Risk Jun 13 2013 2:51PM , High Risk Jun 14 2013 11:41AM Hepatitis C Infection Jun 14 2013 11:41AM Hepatitis C Infection Jun 20 2013 4:33PM History of Intrauterine growth restriction: High Risk Jun 20 2013 4:33PM Migraine Jun 20 2013 4:33PM Hepatitis C Infection Jun 27 2013 3:23PM History of Intrauterine growth restriction: High Risk Jun 27 2013 3:23PM Migraine Jun 27 2013 3:23PM , High Risk Jun 27 2013 3:56PM Hepatitis C Infection Jun 27 2013 3:56PM Hepatitis C Infection Jul 02 2013 12:42PM History of Intrauterine growth restriction: High Risk Jul 02 2013 12:42PM Elevated liver enzymes Jul 02 2013 12:42PM Previous /Undelivered Jul 10 2013 1:55PM , High Risk Jul 10 2013 1:55PM Elevated liver enzymes Jul 10 2013 1:55PM Hepatitis C Infection Jul 10 2013 1:55PM History of Intrauterine growth restriction: High Risk Jul 10 2013 1:55PM Anemia Jul 10 2013 1:55PM Migraine Jul 10 2013 1:55PM Cholestasis of Jul 10 2013 1:55PM Postoperative Visit Jul 25 2013 1:39PM wound cellulitis Jul 25 2013 1:39PM Postoperative Visit Jul 30 2013 1:50PM wound cellulitis Jul 30 2013 1:50PM Cellulitis and abscess; abdomen Jul 30 2013 3:15PM Postoperative Visit Aug 03 2013 10:03AM Cellulitis and abscess; abdomen Aug 03 2013 10:03AM Wound Infection, Postop Aug 03 2013 9:04AM Postoperative Visit Aug 09 2013 11:39AM Cellulitis and abscess; abdomen Aug 09 2013 11:39AM Postoperative Visit Aug 16 2013 2:26PM Cellulitis and abscess; abdomen Aug 16 2013 2:26PM Postoperative Visit Aug 31 2013 9:03AM Cellulitis and abscess; abdomen Aug 31 2013 9:03AM Candidiasis, Vulvovaginal Sep 19 2013 3:19PM Resolved Cellulitis and abscess; abdomen Sep 19 2013 3:19PM Hepatitis C Infection Sep 19 2013 3:19PM Substance Abuse Sep 19 2013 3:19PM Migraine Nov 05 2013 1:47PM Hepatitis C Infection Nov 05 2013 1:47PM Migraine Jan 15 2014 1:09PM Amenorrhea, Rule Out Jan 28 2014 2:28PM Sinus infection Mar 12 2014 3:43PM Dental caries Mar 12 2014 3:43PM Tobacco abuse counseling Mar 12 2014 3:43PM Migraine Mar 22 2014 11:12AM Amenorrhea Apr 17 2014 2:37PM Sinusitis Apr 30 2014 1:59PM Yeast infection May 03 2014 11:54AM Care, High Risk May 08 2014 1:58PM Subchorionic bleed, first trimester May 08 2014 1:58PM Hx of substance abuse May 08 2014 1:58PM Subchorionic hemorrhage in first trimester May 09 2014 9:31AM Hepatitis C Infection May 08 2014 1:58PM Substance Abuse May 08 2014 1:58PM Migraine May 08 2014 1:58PM Care, High Risk May 23 2014 9:30AM HCV (hepatitis C virus) May 23 2014 9:30AM History of drug abuse May 24 2014 10:40AM Flu Vaccine Jun 06 2014 12:00PM Pansinusitis, Acute Jun 09 2014 2:59PM Headache Jun 09 2014 2:59PM Acute sinusitis Jul 25 2014 5:59PM Single umbilical artery Aug 15 2014 1:03PM , High Risk Oct 10 2014 3:32PM Hepatitis C Oct 10 2014 3:32PM , High Risk Oct 11 2014 10:50AM Hepatitis C Oct 11 2014 10:50AM Elevated liver enzymes Oct 24 2014 2:17PM Hepatitis C Infection Oct 24 2014 2:17PM Substance Abuse Oct 24 2014 2:17PM Upper Respiratory Infections Oct 31 2014 11:57AM , High Risk Nov 06 2014 4:01PM Hepatitis C Nov 06 2014 4:01PM Group B Strep Screening, Nov 20 2014 10:54AM Hx of drug abuse Nov 26 2014 12:03PM Maxillary Sinusitis, Acute Dec 01 2014 3:23PM Pansinusitis, Acute Dec 01 2014 3:23PM Acute Pharyngitis Dec 01 2014 3:23PM Cough Dec 01 2014 3:23PM Previous /Undelivered Dec 10 2014 2:22PM Hx of drug abuse Dec 10 2014 4:36PM Migraine Dec 10 2014 2:22PM Hepatitis C Dec 10 2014 2:22PM Drug abuse of mother, third trimester Dec 10 2014 2:22PM Postoperative Examination Following Surgery Dec 19 2014 1:50PM Payers Insurance Name Company Name Plan Name Plan Number Policy Number Policy Group Number Start Date Medicare Part A Medicare Part A [id number] N/A [facility] Comm [id number] Tuesday, 2012 Medicare Part B Medicare Of [place] [id number] N/A [facility] [place] [facility] Plan of [id number] N/A History of Encounters Visit Date Visit Type Provider 12/19/2014 Office visit Gena Arias SLOT TECHNICIAN 12/11/2014 Hospital Julio Arizmendi MD 12/11/2014 [facility] Rama Lay MD 12/10/2014 Office visit Julio Arizmendi MD 12/01/2014 Office visit Jeannie Henao SLOT TECHNICIAN 11/26/2014 Office visit Gena Arias SLOT TECHNICIAN 11/20/2014 Office visit Julio Arizmendi MD 11/06/2014 Office visit Julio Arizmendi MD 10/31/2014 Office visit Renetta Chaves SLOT TECHNICIAN 10/24/2014 Office visit Julio Arizmendi MD 10/10/2014 Office visit Julio Arizmendi MD 09/12/2014 Office visit Julio Arizmendi MD 08/14/2014 Office visit Julio Arizmendi MD 07/25/2014 Office visit Gordon Sainz SLOT TECHNICIAN 07/17/2014 Office visit Julio Arizmendi MD 06/20/2014 Office visit Julio Arizmendi MD 06/09/2014 Office visit Jeannie Henao SLOT TECHNICIAN 06/06/2014 Nurse visit Gordon Sainz SLOT TECHNICIAN 05/23/2014 Office visit Julio Arizmendi MD 05/08/2014 Office visit Julio Arizmendi MD 05/03/2014 Office visit Gordon Sainz SLOT TECHNICIAN 04/30/2014 Office visit Gordon Sainz SLOT TECHNICIAN 04/17/2014 Office visit Julio Arizmendi MD 03/22/2014 Office visit Gordon Sainz SLOT TECHNICIAN 03/12/2014 Office visit Gordon Sainz SLOT TECHNICIAN 01/15/2014 Office visit Juana Owens SLOT TECHNICIAN 11/05/2013 Office visit Juana Owens SLOT TECHNICIAN 09/19/2013 Office visit Julio Arizmendi MD 08/31/2013 Office visit Julio Arizmendi MD 08/16/2013 Office visit Julio Arizmendi MD 08/09/2013 Office visit Julio Arizmendi MD 08/03/2013 Office visit Gena Arias SLOT TECHNICIAN 08/03/2013 [facility] Julio Arizmendi MD 07/30/2013 Office visit Julio Arizmendi MD 07/25/2013 Office visit Julio Arizmendi MD 07/17/2013 [facility] Julio Arizmendi MD 07/17/2013 [facility] Rama Lay MD 07/10/2013 Office visit Julio Arizmendi MD 07/02/2013 Office visit Julio Arizmendi MD 06/27/2013 Office visit Julio Arizmendi MD 06/20/2013 Office visit Julio Arizmendi MD 06/13/2013 Office visit Julio Arizmendi MD 06/07/2013 Office visit Julio Arizmendi MD 06/07/2013 [facility] Julio Arizmendi MD 06/05/2013 Office visit Juana Owens APRN 08/21/2012 Office visit Juana Owens APRN
--- OUTSIDE RECORDS SUMMARY | 2017-09-25 17:12 | XMS REPORT ---
Author Author [facility] Organization [facility] Address [address] [place], [place] [id number] Care Team Providers Care Ostrich Farmer Name Role Phone PCP Unavailable Allergies and Adverse Reactions Name Reaction Notes Morphine Sulfate vomiting PENICILLINS hives Reglan increases b/p Plan of Treatment Planned Activity Comments Planned Date Planned Time Plan/Goal Drug screen (amp, alexandra met, THC, opiates, PCP, janet, magdi, methadone, methaq, pro) 11/26/2014 12:00 AM ASSAY OF BLOOD/URIC ACID 12/10/2014 12:00 AM LACTATE (LD) (LDH) ENZYME 12/10/2014 12:00 AM COMPLETE CBC W/AUTO DIFF WBC 12/31/2014 12:00 AM COMPREHEN METABOLIC PANEL 12/31/2014 12:00 AM Medications Active Name Start Date Estimated Completion Date SIG Comments Zofran ODT oral tablet,disintegrating 4 mg 05/08/2014 1 PO q 8 hrs prn nausea Zofran ODT oral tablet,disintegrating 4 mg 06/05/2014 1 PO q 8 hrs prn nausea Zofran ODT oral tablet,disintegrating 4 mg 08/05/2014 1 PO q 8 hrs prn nausea oxycodone oral capsule 5 mg 12/31/2014 01/14/2015 take 1 capsule (5 mg) by oral route every 6 hours as needed for pain for 14 days Name Start Date Expiration Date SIG [...] is receiving Suboxone from a specialist in [place] baclofen oral tablet 20 mg 03/22/2014 04/21/2014 [...] oral route once daily for 4 days Gummy oral tablet,chewable 400 mcg-35 mg -25 mg-5 mg 11/18/2014 chew 1 tablet by oral route daily Levaquin oral tablet 750 mg 12/19/2014 12/23/2014 take 1 tablet (750 mg) by oral route once daily for 4 days Levaquin oral tablet 750 mg 12/23/2014 12/30/2014 take 1 tablet (750 mg) by oral route once daily for 7 days Discontinued Name Start Date Discontinued Date [...] HC BMI BSA BMI Percentile O2 Sat(%) 12/31/2014 3:18:00 PM 130 mmHg 83 mmHg 88 bpm 98 F 144 lbs 59 in 29.08 kg/m2 1.65 m2 12/23/2014 10:04:00 AM 142 mmHg 101 mmHg 69 bpm 97.7 F 150 lbs 59 in 30.296 kg/m 1.683 m 12/19/2014 1:44:00 PM 126 mmHg 85 mmHg [...] 3.42 HGB 8.70 g/dLHCT 27.40 %MCV 80.0 fLMCH 25.40 pgMCHC 31.80 g/dLRDW CV 15.40 %MPV [...] % History Of Immunizations Name Date Admin Mf Name Mfg Code Trade Name Lot# Route Inj Vis Given Vis Pub CVX Influenza 06/06/2014 sanofi pasteur PMC Fluzone [id number] Intramuscular Left Deltoid 06/06/2014 03/26/2014 141 History [...] Examination Following Surgery Dec 19 2014 1:50PM Postoperative Visit Dec 23 2014 10:08AM Cellulitis Dec 23 2014 10:08AM Postoperative Visit Dec 31 2014 3:22PM Cellulitis Improving Dec 31 2014 3:22PM Hepatitis C Dec 31 2014 3:22PM Payers Insurance Name Company Name Plan Name Plan Number Policy Number Policy Group Number Start Date Medicare Part A Medicare Part A [id number] N/A [facility] Comm [id number] Tuesday, 2012 Medicare Part B Medicare Of [place] [id number] N/A [facility] Community [facility] Comm Plan of [id number] N/A History of Encounters Visit Date Visit Type Provider 12/31/2014 Office visit Julio Arizmendi MD 12/23/2014 Office visit Julio Arizmendi MD 12/19/2014 Office visit Gena Arias COYOTE HUNTER 12/15/2014 [facility] Kerri Kemp MD 12/11/2014 [facility] Julio Arizmendi MD 12/11/2014 [facility] Rama Lay MD 12/10/2014 Office visit Julio Arizmendi MD 12/01/2014 Office visit Jeannie Henao COYOTE HUNTER 11/26/2014 Office visit Gena Arias COYOTE HUNTER 11/20/2014 Office visit Julio Arizmendi MD 11/06/2014 Office visit Julio Arizmendi MD 10/31/2014 Office visit Renetta Chaves COYOTE HUNTER 10/24/2014 Office visit Julio Arizmendi MD 10/10/2014 Office visit Julio Arizmendi MD 09/12/2014 Office visit Julio Arizmendi MD 08/14/2014 Office visit Julio Arizmendi MD 07/25/2014 Office visit Gordon Sainz COYOTE HUNTER 07/17/2014 Office visit Julio Arizmendi MD 06/20/2014 Office visit Julio Arizmendi MD 06/09/2014 Office visit Jeannie Henao COYOTE HUNTER 06/06/2014 Nurse visit Gordon Sainz COYOTE HUNTER 05/23/2014 Office visit Julio Arizmendi MD 05/08/2014 Office visit Julio Arizmendi MD 05/03/2014 Office visit Gordon Sainz COYOTE HUNTER 04/30/2014 Office visit Gordon Sainz COYOTE HUNTER 04/17/2014 Office visit Julio Arizmendi MD 03/22/2014 Office visit Gordon Sainz COYOTE HUNTER 03/12/2014 Office visit Gordon Sainz COYOTE HUNTER 01/15/2014 Office visit Juana Owens COYOTE HUNTER 11/05/2013 Office visit Juana Owens COYOTE HUNTER 09/19/2013 Office visit Julio Arizmendi MD 08/31/2013 Office visit Julio Arizmendi MD 08/16/2013 Office visit Julio Arizmendi MD 08/09/2013 Office visit Julio Arizmendi MD 08/03/2013 Office visit Gena Arias COYOTE HUNTER 08/03/2013 Hospital Julio Arizmendi MD 07/30/2013 Office visit Julio Arizmendi MD 07/25/2013 Office visit Julio Arizmendi MD 07/17/2013 [facility] Julio Arizmendi MD 07/17/2013 [facility] Rama Lay MD 07/10/2013 Office visit Julio Arizmendi MD 07/02/2013 Office visit Julio Arizmendi MD 06/27/2013 Office visit Julio Arizmendi MD 06/20/2013 Office visit Julio Arizmendi MD 06/13/2013 Office visit Julio Arizmendi MD 06/07/2013 Office visit Julio Arizmendi MD 06/07/2013 [facility] Julio Arizmendi MD 06/05/2013 Office visit Juana Owens COYOTE HUNTER 08/21/2012 Office visit Juana Owens COYOTE HUNTER
--- OUTSIDE RECORDS SUMMARY | 2017-09-25 17:13 | XMS REPORT ---
Author Author [facility] Organization [facility] Address [address] [place], [place] [id number] Care Team Providers Care Chief Meter Reader Name Role Phone PCP Unavailable Allergies and Adverse Reactions Name Reaction Notes Morphine Sulfate vomiting PENICILLINS hives Reglan increases b/p Plan of Treatment Planned Activity Comments Planned Date Planned Time Plan/Goal Drug screen (amp, alexandra met, THC, opiates, PCP, janet, magdi, methadone, methaq, pro) 11/26/2014 12:00 AM Medications Active Name Start Date Estimated Completion Date SIG Comments Zofran ODT oral tablet,disintegrating 4 mg 05/08/2014 1 PO q 8 hrs prn nausea Zofran ODT oral tablet,disintegrating 4 mg 06/05/2014 1 PO q 8 hrs prn nausea buprenorphine HCl sublingual tablet, sublingual [address] 1 tablet (8 mg) by sublingual route once daily allow to dissolve slowly in mouth without chewing or swallowing for 30 days Zofran ODT oral tablet,disintegrating 4 mg 08/05/2014 1 PO q 8 hrs prn nausea Zofran ODT oral tablet,disintegrating 4 mg 09/09/2014 1 PO Q 8 HRS PRN NAUSEA Amitiza oral capsule 24 mcg take 1 capsule (24 mcg) by oral route 2 times per day with food and water Fioricet oral capsule 50-300-40 mg 09/12/2014 take 1 capsule by oral route every 12 hours as needed for headache. ranitidine HCl oral capsule 150 mg 10/15/2014 take 1 capsule (150 mg) by oral route 2 times per day ferrous sulfate oral tablet 325 mg (65 mg iron) 10/24/2014 take 1 tablet by oral route daily Gummy oral tablet,chewable 400 mcg-35 mg -25 mg-5 mg 11/18/2014 chew 1 tablet by oral route daily prochlorperazine maleate oral tablet 5 mg 11/20/2014 take 1 tablet by oral route every 6 hours as needed promethazine oral tablet 25 mg 11/20/2014 02/18/2015 take 1 tablet by oral route [facility] prn Nausea Name Start Date Expiration Date SIG Comments [...] is receiving Suboxone from a specialist in [place] baclofen oral tablet 20 mg 03/22/2014 04/21/2014 [...] route once daily as needed for constipation Zovirax topical ointment 5 % 07/29/2014 09/12/2014 apply to affected area by external route 3 times a day prochlorperazine maleate oral tablet 5 mg 07/29/2014 09/12/2014 1 tab q 6 hrs prn nausea/vomiting ondansetron oral tablet,disintegrating 4 mg 09/25/2014 11/06/2014 DISSOLVE ONE TABLET IN MOUTH EVERY 8 HOURS NEEDED FOR NAUSEA Problem List Description Status Onset Migraine Active Hepatitis C Infection Active 06/13/2013 Bipolar disorder, unspecified Active 06/13/2013 wound cellulitis Active Wound Infection, Postop Active Substance Abuse Active 09/19/2013 Vital Signs Date Time BP-Sys(mm[Hg] BP-Preeti(mm[Hg]) HR(bpm) RR(rpm) Temp WT HT HC BMI BSA BMI Percentile O2 Sat(%) 10/31/2014 11:57:00 AM 124 mmHg 70 mmHg 97 bpm 18 rpm 96.9 F 168.125 lbs 59 in 33.96 kg/m2 1.78 m2 98 % 07/25/2014 5:54:00 PM 94 mmHg 58 mmHg 74 bpm 16 rpm 9.4 F 167.5 lbs 59 in 33.8306 kg/m 1.7784 m 99 % 06/09/2014 2:52:00 PM 114 mmHg 70 mmHg 77 bpm 16 rpm 97 F 171 lbs 59 in 34.54 kg/m2 1.80 m2 100 % 05/08/2014 1:51:00 PM 139 mmHg 78 mmHg 84 bpm 96.5 F 174 lbs 59 in 35.1434 kg/m 1.8126 m 05/03/2014 11:50:00 AM 130 mmHg 70 mmHg 83 bpm 18 rpm 175.375 lbs 59 in 35.42 kg/m2 1.82 m2 100 % 04/30/2014 1:52:00 PM 120 mmHg 72 mmHg 86 bpm 18 rpm 97.8 F 172.375 lbs 59 in 34.8152 kg/m 1.8041 m 99 % 03/22/2014 11:08:00 AM 150 mmHg 85 mmHg 87 bpm 20 rpm 97.4 F 183 lbs 59 in 36.96 kg/m2 1.86 m2 98 % 03/12/2014 3:40:00 PM 102 mmHg 70 mmHg 63 bpm 18 rpm 96.9 F 178.375 lbs 59 in 36.027 kg/m 1.8352 m 98 % 01/15/2014 1:07:00 PM 122 mmHg 78 mmHg 70 bpm 18 rpm 97.7 F 158 lbs 59 in 31.91 kg/m2 1.73 m2 100 % 11/05/2013 1:45:00 PM 122 mmHg 88 mmHg 84 bpm 18 rpm 97.3 F 146.6 lbs 59 in 29.6093 kg/m 1.6638 m 100 % 09/19/2013 3:11:00 PM 118 mmHg 77 mmHg 75 bpm 96.8 F 142 lbs 59 in 28.68 kg/m2 1.64 m2 08/31/2013 8:57:00 AM 100 mmHg 74 mmHg 64 bpm 96.7 F 151 lbs 59 in 30.498 kg/m 1.6886 m 08/16/2013 2:19:00 PM 127 mmHg 90 mmHg 81 bpm 96.7 F 155 lbs 59 in 31.31 kg/m2 1.71 m2 08/09/2013 11:35:00 AM 130 mmHg 69 mmHg 68 bpm 97.7 F 155 lbs 59 in 31.3059 kg/m 1.7108 m 08/03/2013 9:01:00 AM 131 mmHg 81 mmHg 73 bpm 97.6 F 157.5 lbs 59 in 31.81 kg/m2 1.72 m2 07/30/2013 1:45:00 PM 126 mmHg 75 mmHg 84 bpm 96.5 F 159 lbs 59 in 32.1138 kg/m 1.7327 m 07/25/2013 1:32:00 PM 121 mmHg 77 mmHg 86 bpm 96.7 F 165 lbs 59 in 33.33 kg/m2 1.77 m2 07/10/2013 1:56:00 PM 129 mmHg 79 mmHg 90 bpm 97.7 F 171 lbs 59 in 34.5375 kg/m 1.7969 m 06/07/2013 3:08:00 PM 139 mmHg 71 mmHg 86 bpm 96.5 F 175 lbs 59 in 35.35 kg/m2 1.82 m2 06/05/2013 10:19:00 AM 119 mmHg 80 mmHg 104 bpm 20 rpm 96.8 F 173 lbs 59 in 34.9414 kg/m 1.8074 m 99 % 08/21/2012 2:27:00 PM 122 mmHg 78 mmHg 71 bpm 20 rpm 96.7 F 141.8 lbs 59 in 28.64 kg/m2 1.64 m2 100 % Social History Name Description Comments [...] 12:00 AM CULTURE OTHR SPECIMN AEROBIC Returned Results Summary Data and Description Results [...] 0.20 mg/dLCALCIUM 9.0 mg/dLeGFR >60 mL/min/1.73 m2 History Of Immunizations Name Date Admin Mfg Name Mfg Code Trade Name Lot# Route Inj Vis Given Vis Pub CVX Influenza 06/06/2014 sanofi pasteur PMC Fluzone [id number] Intramuscular Left Deltoid 06/06/2014 03/26/2014 141 History [...] of drug abuse Nov 26 2014 12:03PM Payers Insurance Name Company Name Plan Name Plan Number Policy Number Policy Group Number Start Date Medicare Part A Medicare Part A [id number] N/A [facility] Comm [id number] Tuesday, 2012 Medicare Part B Medicare Of [place] [id number] N/A [facility] Comm Plan of [id number] N/A History of Encounters Visit Date Visit Type Provider 11/26/2014 Office visit Gena Arias COMPRESSED YEAST SUPERVISOR 11/20/2014 Office visit Julio Arizmendi MD 11/06/2014 Office visit Julio Arizmendi MD 10/31/2014 Office visit Renetta Chaves COMPRESSED YEAST SUPERVISOR 10/24/2014 Office visit Julio Arizmendi MD 10/10/2014 Office visit Julio Arizmendi MD 09/12/2014 Office visit Julio Arizmendi MD 08/14/2014 Office visit Julio Arizmendi MD 07/25/2014 Office visit Gordon Sainz COMPRESSED YEAST SUPERVISOR 07/17/2014 Office visit Julio Arizmendi MD 06/20/2014 Office visit Julio Arizmendi MD 06/09/2014 Office visit Jeannie Henao COMPRESSED YEAST SUPERVISOR 06/06/2014 Nurse visit Gordon Sainz COMPRESSED YEAST SUPERVISOR 05/23/2014 Office visit Julio Arizmendi MD 05/08/2014 Office visit Julio Arizmendi MD 05/03/2014 Office visit Gordon Sainz COMPRESSED YEAST SUPERVISOR 04/30/2014 Office visit Gordon Sainz COMPRESSED YEAST SUPERVISOR 04/17/2014 Office visit Julio Arizmendi MD 03/22/2014 Office visit Gordon Sainz COMPRESSED YEAST SUPERVISOR 03/12/2014 Office visit Gordon Sainz COMPRESSED YEAST SUPERVISOR 01/15/2014 Office visit Juana Owens COMPRESSED YEAST SUPERVISOR 11/05/2013 Office visit Juana Owens COMPRESSED YEAST SUPERVISOR 09/19/2013 Office visit Julio Arizmendi MD 08/31/2013 Office visit Julio Arizmendi MD 08/16/2013 Office visit Julio Arizmendi MD 08/09/2013 Office visit Juloi Arizmendi MD 08/03/2013 Office visit Gena Arias COMPRESSED YEAST SUPERVISOR 08/03/2013 Hospital Julio Arizmendi MD 07/30/2013 Office visit Julio Arizmendi MD 07/25/2013 Office visit Julio Arizmendi MD 07/17/2013 Hospital Julio Arizmendi MD 07/17/2013 [facility] Rama Lay MD 07/10/2013 Office visit Julio Arizmendi MD 07/02/2013 Office visit Julio Arizmendi MD 06/27/2013 Office visit Julio Arizmendi MD 06/20/2013 Office visit Julio Arizmendi MD 06/13/2013 Office visit Julio Arizmendi MD 06/07/2013 Office visit Julio Arizmendi MD 06/07/2013 Hospital Julio Arizmendi MD 06/05/2013 Office visit Juana Owens COMPRESSED YEAST SUPERVISOR 08/21/2012 Office visit Juana Owens COMPRESSED YEAST SUPERVISOR
--- OUTSIDE RECORDS SUMMARY | 2017-09-25 17:15 | XMS REPORT ---
Author Author [facility] Organization [facility] Address [address] [place], [place] [id number] Care Team Providers Care Windows Systems Engineer Name Role Phone PCP Unavailable Allergies and [...] 1 PO q 8 hrs prn nausea Levaquin oral tablet 750 mg 12/23/2014 12/30/2014 take 1 tablet (750 mg) by oral route once daily for 7 days oxycodone oral capsule 5 mg 12/23/2014 12/30/2014 take 1 capsule (5 mg) by oral route every 6 hours as needed for pain for 7 days Name Start Date Expiration Date SIG [...] is receiving Suboxone from a specialist in [place] baclofen oral tablet 20 mg 03/22/2014 04/21/2014 [...] HC BMI BSA BMI Percentile O2 Sat(%) 12/23/2014 10:04:00 AM 142 mmHg 101 mmHg 69 bpm 97.7 F 150 lbs 59 in 30.30 kg/m2 1.68 m2 12/19/2014 1:44:00 PM 126 mmHg 85 mmHg 84 bpm 18 rpm 98.2 F 12/10/2014 2:20:00 PM 141 mmHg 88 mmHg 77 bpm 96.4 F 169 lbs 59 in 34.1335 kg/m 1.79 m2 12/01/2014 3:20:00 PM 120 mmHg 78 mmHg 73 bpm 16 rpm 96.7 F 170.25 lbs 59 in 34.39 kg/m2 1.793 m 98 % 10/31/2014 11:57:00 AM 124 mmHg 70 mmHg 97 bpm 18 rpm 96.9 F 168.125 lbs 59 in 33.9568 kg/m 1.78 m2 98 % 07/25/2014 5:54:00 PM 94 mmHg 58 mmHg 74 bpm 16 rpm 9.4 F 167.5 lbs 59 in 33.83 kg/m2 1.7784 m 99 % 06/09/2014 2:52:00 PM 114 mmHg 70 mmHg 77 bpm 16 rpm 97 F 171 lbs 59 in 34.5375 kg/m 1.80 m2 100 % 05/08/2014 1:51:00 PM 139 mmHg 78 mmHg 84 bpm 96.5 F 174 lbs 59 in 35.14 kg/m2 1.8126 m 05/03/2014 11:50:00 AM 130 mmHg 70 mmHg 83 bpm 18 rpm 175.375 lbs 59 in 35.4211 kg/m 1.82 m2 100 % 04/30/2014 1:52:00 PM 120 mmHg 72 mmHg 86 bpm 18 rpm 97.8 F 172.375 lbs 59 in 34.82 kg/m2 1.8041 m 99 % 03/22/2014 11:08:00 AM 150 mmHg 85 mmHg 87 bpm 20 rpm 97.4 F 183 lbs 59 in 36.9611 kg/m 1.86 m2 98 % 03/12/2014 3:40:00 PM 102 mmHg 70 mmHg 63 bpm 18 rpm 96.9 F 178.375 lbs 59 in 36.03 kg/m2 1.8352 m 98 % 01/15/2014 1:07:00 PM 122 mmHg 78 mmHg 70 bpm 18 rpm 97.7 F 158 lbs 59 in 31.9118 kg/m 1.73 m2 100 % 11/05/2013 1:45:00 PM 122 mmHg 88 mmHg 84 bpm 18 rpm 97.3 F 146.6 lbs 59 in 29.61 kg/m2 1.6638 m 100 % 09/19/2013 3:11:00 PM 118 mmHg 77 mmHg 75 bpm 96.8 F 142 lbs 59 in 28.6802 kg/m 1.64 m2 08/31/2013 8:57:00 AM 100 mmHg 74 mmHg 64 bpm 96.7 F 151 lbs 59 in 30.50 kg/m2 1.6886 m 08/16/2013 2:19:00 PM 127 mmHg 90 mmHg 81 bpm 96.7 F 155 lbs 59 in 31.3059 kg/m 1.71 m2 08/09/2013 11:35:00 AM 130 mmHg 69 mmHg 68 bpm 97.7 F 155 lbs 59 in 31.31 kg/m2 1.7108 m 08/03/2013 9:01:00 AM 131 mmHg [...] CVX Influenza 06/06/2014 sanofi pasteur PMC Fluzone [id number] Intramuscular Left Deltoid 06/06/2014 03/26/2014 141 History [...] 2014 10:08AM Cellulitis Dec 23 2014 10:08AM Payers Insurance Name Company Name Plan Name Plan Number Policy Number Policy Group Number Start Date Medicare Part A Medicare Part A [id number] N/A [facility] - C - Community Plan [facility] RHC Comm [id number] Tuesday, 2012 Medicare Part B Medicare Of [place] [id number] N/A [facility] Comm Plan of [id number] N/A History of Encounters Visit Date Visit Type Provider 12/23/2014 Office visit Julio Arizmendi MD 12/19/2014 Office visit Gena Arias UTILITIES GROUND WORKER 12/15/2014 Hospital Kerri Kemp MD 12/11/2014 Hospital Julio Arizmendi MD 12/11/2014 [facility] Rama Lay MD 12/10/2014 Office visit Julio Arizmendi MD 12/01/2014 Office visit Jeannie Henao UTILITIES GROUND WORKER 11/26/2014 Office visit Gena Arias UTILITIES GROUND WORKER 11/20/2014 Office visit Julio Arizmendi MD 11/06/2014 Office visit Julio Arizmendi MD 10/31/2014 Office visit Renetta Chaves UTILITIES GROUND WORKER 10/24/2014 Office visit Julio Arizmendi MD 10/10/2014 Office visit Julio Arizmendi MD 09/12/2014 Office visit Julio Arizmendi MD 08/14/2014 Office visit Julio Arizmendi MD 07/25/2014 Office visit Gordon Sainz UTILITIES GROUND WORKER 07/17/2014 Office visit Julio Arizmendi MD 06/20/2014 Office visit Julio Arizmendi MD 06/09/2014 Office visit Jeannie Henao UTILITIES GROUND WORKER 06/06/2014 Nurse visit Gordon Sainz UTILITIES GROUND WORKER 05/23/2014 Office visit Julio Arizmendi MD 05/08/2014 Office visit Julio Arizmendi MD 05/03/2014 Office visit Gordon Sainz UTILITIES GROUND WORKER 04/30/2014 Office visit Gordon Sainz UTILITIES GROUND WORKER 04/17/2014 Office visit Julio Arizmendi MD 03/22/2014 Office visit Gordon Sainz UTILITIES GROUND WORKER 03/12/2014 Office visit Gordon Sainz UTILITIES GROUND WORKER 01/15/2014 Office visit Juana Owens UTILITIES GROUND WORKER 11/05/2013 Office visit Juana Owens UTILITIES GROUND WORKER 09/19/2013 Office visit Julio Arizmendi MD 08/31/2013 Office visit Julio Arizmendi MD 08/16/2013 Office visit Julio Arizmendi MD 08/09/2013 Office visit Julio Arizmendi MD 08/03/2013 Office visit Gena ItaMo Arias UTILITIES GROUND WORKER 08/03/2013 [facility] Julio Arizmendi MD 07/30/2013 Office visit Julio Arizmendi MD 07/25/2013 Office visit Julio Arizmendi MD 07/17/2013 [facility] Julio Arizmendi MD 07/17/2013 [facility] Rama Lay MD 07/10/2013 Office visit Julio Arizmendi MD 07/02/2013 Office visit Julio Arizmendi MD 06/27/2013 Office visit Julio Arizmendi MD 06/20/2013 Office visit Julio Arizmendi MD 06/13/2013 Office visit Julio Arizmendi MD 06/07/2013 Office visit Julio Arizmendi MD 06/07/2013 [facility] Julio Arizmendi MD 06/05/2013 Office visit Juana Owens UTILITIES GROUND WORKER 08/21/2012 Office visit Juana Owens UTILITIES GROUND WORKER
--- OUTSIDE RECORDS SUMMARY | 2017-09-25 17:16 | XMS REPORT ---
Author Author [facility] Organization [facility] Address [address] [place], [place] [id number] Care Team Providers Care Furniture Packer Name Role Phone PCP Unavailable Allergies and Adverse Reactions Name Reaction Notes Morphine Sulfate vomiting PENICILLINS hives Reglan increases b/p Plan of Treatment Planned Activity Comments Planned Date Planned Time Plan/Goal Drug screen (amp, alexandra met, THC, opiates, PCP, janet, magdi, methadone, methaq, pro) 11/26/2014 12:00 AM COMPREHEN METABOLIC PANEL 12/10/2014 12:00 AM ASSAY OF BLOOD/URIC ACID 12/10/2014 [...] 1 PO q 8 hrs prn nausea ranitidine HCl oral capsule 150 mg 10/15/2014 take 1 capsule (150 mg) by oral route 2 times per day ferrous sulfate oral tablet 325 mg (65 mg iron) 10/24/2014 take 1 tablet by oral route daily Gummy oral tablet,chewable 400 mcg-35 mg -25 mg-5 mg 11/18/2014 chew 1 tablet by oral route daily promethazine oral tablet 25 mg 11/20/2014 02/18/2015 take 1 tablet by oral route qhs prn Nausea Name Start Date Expiration Date [...] is receiving Suboxone from a specialist in [place] baclofen oral tablet 20 mg 03/22/2014 04/21/2014 [...] MOUTH EVERY 8 HOURS NEEDED FOR NAUSEA prochlorperazine maleate oral tablet 5 mg 11/20/2014 12/10/2014 take 1 tablet by oral route every 6 hours as needed amoxicillin oral capsule 500 mg 12/01/2014 12/10/2014 [...] HC BMI BSA BMI Percentile O2 Sat(%) 12/10/2014 2:20:00 PM 141 mmHg 88 mmHg 77 bpm 96.4 F 169 lbs 59 in 34.13 kg/m2 1.79 m2 12/01/2014 3:20:00 PM 120 mmHg 78 mmHg 73 bpm 16 rpm 96.7 F 170.25 lbs 59 in 34.386 kg/m 1.793 m 98 % 10/31/2014 11:57:00 AM [...] AM COMPLETE CBC W/AUTO DIFF WBC Returned Results Summary Data and Description Results [...] mg/dLCALCIUM 9.0 mg/ dLeGFR >60 mL/min/1.73 m2 History Of Immunizations Name Date Admin Mfg Name Mfg Code Trade Name Lot# Route Inj Vis Given Vis Pub CVX Influenza 06/06/2014 sanofi pasteur PMC Fluzone [id number] Intramuscular Left Deltoid 06/06/2014 03/26/2014 141 History [...] mother, third trimester Dec 10 2014 2:22PM Payers Insurance Name Company Name Plan Name Plan Number Policy Number Policy Group Number Start Date Medicare Part A Medicare Part A [id number] N/A [facility] Comm [id number] Tuesday, 2012 Medicare Part B Medicare [place] [id number] N/A [facility] Comm Plan of [id number] N/A History of Encounters Visit Date Visit Type Provider 12/10/2014 Office visit Julio Arizmendi MD 12/01/2014 Office visit Jeannie Henao APRN 11/26/2014 Office visit Gena Arias FUGITIVE INVESTIGATOR 11/20/2014 Office visit Julio Arizmendi MD 11/06/2014 Office visit Julio Arizmendi MD 10/31/2014 Office visit Renetta Chaves FUGITIVE INVESTIGATOR 10/24/2014 Office visit Julio Arizmendi MD 10/10/2014 Office visit Julio Arizmendi MD 09/12/2014 Office visit Julio Arizmendi MD 08/14/2014 Office visit Julio Arizmendi MD 07/25/2014 Office visit Gordon Sainz FUGITIVE INVESTIGATOR 07/17/2014 Office visit Julio Arizmendi MD 06/20/2014 Office visit Julio Arizmendi MD 06/09/2014 Office visit Jeannie Henao FUGITIVE INVESTIGATOR 06/06/2014 Nurse visit Gordon Sainz FUGITIVE INVESTIGATOR 05/23/2014 Office visit Julio Arizmendi MD 05/08/2014 Office visit Julio Arizmendi MD 05/03/2014 Office visit Gordon Sainz FUGITIVE INVESTIGATOR 04/30/2014 Office visit Gordon Sainz FUGITIVE INVESTIGATOR 04/17/2014 Office visit Julio Arizmendi MD 03/22/2014 Office visit Gordon Sainz FUGITIVE INVESTIGATOR 03/12/2014 Office visit Gordon Sainz FUGITIVE INVESTIGATOR 01/15/2014 Office visit Juana Owens FUGITIVE INVESTIGATOR 11/05/2013 Office visit Juana Owens FUGITIVE INVESTIGATOR 09/19/2013 Office visit Julio Arizmendi MD 08/31/2013 Office visit Julio Arizmendi MD 08/16/2013 Office visit Julio Arizmendi MD 08/09/2013 Office visit Julio Arizmendi MD 08/03/2013 Office visit Gena Arias FUGITIVE INVESTIGATOR 08/03/2013 Hospital Julio Arizmendi MD 07/30/2013 Office visit Julio Arizmendi MD 07/25/2013 Office visit Julio Arizmendi MD 07/17/2013 Hospital Julio Arizmendi MD 07/17/2013 [facility] Rama Lay MD 07/10/2013 Office visit Julio Arizmendi MD 07/02/2013 Office visit Julio Arizmendi MD 06/27/2013 Office visit Julio Arizmendi MD 06/20/2013 Office visit Julio Arizmendi MD 06/13/2013 Office visit Julio Arizmendi MD 06/07/2013 Office visit Julio Arizmendi MD 06/07/[address] [place] [address] Julio Arizmendi MD 06/05/2013 Office visit Juana Owens APRN 08/21/2012 Office visit Juana Owens APRN
--- OUTSIDE RECORDS SUMMARY | 2017-09-25 17:18 | XMS REPORT ---
Author Author [facility] Organization [facility] Address [address] [place], [place] [id number] Care Team Providers Care Commission Clerk Name Role Phone PCP Unavailable Allergies and [...] is receiving Suboxone from a specialist in [place] baclofen oral tablet 20 mg 03/22/2014 04/21/2014 [...] CVX Influenza 06/06/2014 sanofi pasteur PMC Fluzone [id number] Intramuscular Left Deltoid 06/06/2014 03/26/2014 141 History [...] Date Medicare Part A Medicare Part A [id number] N/A [facility] Comm [id number] Tuesday, 2012 Medicare Part B Medicare Of [place] [id number] N/A [facility] Comm Plan of [id number] N/A History of Encounters Visit Date Visit Type Provider 12/10/2014 Office visit Julio Arizmendi MD 12/01/2014 Office visit Jeannie Henao APRN 11/26/2014 Office visit Gena Arias DIALYSIS NURSE 11/20/2014 Office visit Julio Arizmendi MD 11/06/2014 Office visit Julio Arizmendi MD 10/31/2014 Office visit Renetta Chaves DIALYSIS NURSE 10/24/2014 Office visit Julio Arizmendi MD 10/10/2014 Office visit Julio Arizmendi MD 09/12/2014 Office visit Julio Arizmendi MD 08/14/2014 Office visit Julio Arizmendi MD 07/25/2014 Office visit Gordon Sainz DIALYSIS NURSE 07/17/2014 Office visit Julio Arizmendi MD 06/20/2014 Office visit Julio Arizmendi MD 06/09/2014 Office visit Jeannie Henao DIALYSIS NURSE 06/06/2014 Nurse visit Gordon Sainz DIALYSIS NURSE 05/23/2014 Office visit Julio Arizmendi MD 05/08/2014 Office visit Julio Arizmendi MD 05/03/2014 Office visit Gordon Sainz DIALYSIS NURSE 04/30/2014 Office visit Gordon Sainz DIALYSIS NURSE 04/17/2014 Office visit Julio Arizmendi MD 03/22/2014 Office visit Gordon Sainz DIALYSIS NURSE 03/12/2014 Office visit Gordon Sainz DIALYSIS NURSE 01/15/2014 Office visit Juana Owens DIALYSIS NURSE 11/05/2013 Office visit Juana Owens DIALYSIS NURSE 09/19/2013 Office visit Julio Arizmendi MD 08/31/2013 Office visit Julio Arizmendi MD 08/16/2013 Office visit Julio Arizmendi MD 08/09/2013 Office visit Julio Arizmendi MD 08/03/2013 Office visit Gena Arias DIALYSIS NURSE 08/03/2013 Hospital Julio Arizmendi MD 07/30/2013 Office visit Julio Arizmendi MD 07/25/2013 Office visit Julio Arizmendi MD 07/17/2013 Hospital Julio Arizmendi MD 07/17/2013 [facility] Rama Lay MD 07/10/2013 Office visit Julio Arizmendi MD 07/02/2013 Office visit Julio Arizmendi MD 06/27/2013 Office visit Julio Arizmendi MD 06/20/2013 Office visit Julio Arizmendi MD 06/13/2013 Office visit Julio Arizmendi MD 06/07/2013 Office visit Julio Arizmendi MD 06/07/[address] [place] [address] Julio Arizmendi MD 06/05/2013 Office visit Juana Owens APRN 08/21/2012 Office visit Juana Owens APRN
--- OUTSIDE RECORDS SUMMARY | 2017-09-25 17:20 | XMS REPORT ---
Author Author [facility] Organization [facility] Address [address] [place], [place] [address] Care Team Providers Care Gas Generator Operator Name Role Phone PCP Unavailable Allergies and Adverse Reactions Name Reaction Notes Morphine Sulfate vomiting PENICILLINS hives Reglan increases b/p Plan of Treatment Planned Activity Comments Planned Date Planned Time Plan/Goal Drug screen (amp, alexandra met, THC, opiates, PCP, janet, magdi, methadone, methaq, pro) 11/26/2014 12:00 AM COMPLETE CBC W/AUTO DIFF WBC 12/10/2014 3:09 PM DRUG SCREEN CLASS LIST A 12/10/2014 12:00 AM Medications Active Name Start [...] is receiving Suboxone from a specialist in [place] baclofen oral tablet 20 mg 03/22/2014 04/21/2014 [...] CVX Influenza 06/06/2014 sanofi pasteur PMC Fluzone [id number] Intramuscular Left Deltoid 06/06/2014 03/26/2014 141 History [...] of drug abuse Dec 10 2014 4:36PM Payers Insurance Name Company Name Plan Name Plan Number Policy Number Policy Group Number Start Date Medicare Part A Medicare Part A [id number] N/A [facility] [id number] Tuesday, 2012 Medicare Part B Medicare Of [place] [id number] N/A [facility] Comm Plan of [id number] N/A History of Encounters Visit Date Visit Type Provider 12/10/2014 Office visit Julio Arizmendi MD 12/01/2014 Office visit Jeannie Henao TABBER 11/26/2014 Office visit Gena Arias TABBER 11/20/2014 Office visit Julio Arizmendi MD 11/06/2014 Office visit Julio Arizmendi MD 10/31/2014 Office visit Renetta Chaves TABBER 10/24/2014 Office visit Julio Arizmendi MD 10/10/2014 Office visit Julio Arizmendi MD 09/12/2014 Office visit Julio Arizmendi MD 08/14/2014 Office visit Julio Arizmendi MD 07/25/2014 Office visit Gordon Sainz TABBER 07/17/2014 Office visit Julio Arizmendi MD 06/20/2014 Office visit Julio Arizmendi MD 06/09/2014 Office visit Jeannie Henao TABBER 06/06/2014 Nurse visit Gordon Sainz TABBER 05/23/2014 Office visit Julio Arizmendi MD 05/08/2014 Office visit Julio Arizmendi MD 05/03/2014 Office visit Gordon Sainz TABBER 04/30/2014 Office visit Gordon Sainz TABBER 04/17/2014 Office visit Julio Arizmendi MD 03/22/2014 Office visit Gordon Sainz TABBER 03/12/2014 Office visit Gordon Sainz TABBER 01/15/2014 Office visit Juana Owens TABBER 11/05/2013 Office visit Juana Owens TABBER 09/19/2013 Office visit Julio Arizmendi MD 08/31/2013 Office visit Julio Arizmendi MD 08/16/2013 Office visit Julio Arizmendi MD 08/09/2013 Office visit Julio Arizmendi MD 08/03/2013 Office visit Gena Arias TABBER 08/03/2013 [facility] Julio Arizmendi MD 07/30/2013 Office visit Julio Arizmendi MD 07/25/2013 Office visit Julio Arizmendi MD 07/17/2013 [facility] Julio Arizmendi MD 07/17/2013 [facility] Rama Lay MD 07/10/2013 Office visit Julio Arizmendi MD 07/02/2013 Office visit Julio Arizmendi MD 06/27/2013 Office visit Julio Arizmendi MD 06/20/2013 Office visit Julio Arizmendi MD 06/13/2013 Office visit Julio Arizmendi MD 06/07/2013 Office visit Julio Arizmendi MD 06/07/2013 [facility] Julio Arizmendi MD 06/05/2013 Office visit Juana Owens TABBER 08/21/2012 Office visit Juana Owens TABBER
--- OUTSIDE RECORDS SUMMARY | 2017-09-25 17:21 | XMS REPORT ---
Author Author [facility] Organization [facility] Address [address] [place], [place] [phone] Care Team Providers Care School Services Officer Name Role Phone PCP Unavailable Allergies and [...] 02/18/2015 take 1 tablet [facility] Nausea amoxicillin oral capsule 500 mg 12/01/2014 12/11/2014 take 2 capsule (1000 mg) by oral route every 12 hours for 10 days Name Start Date Expiration Date SIG [...] is receiving Suboxone from a specialist in [place] baclofen oral tablet 20 mg 03/22/2014 04/21/2014 [...] CVX Influenza 06/06/2014 sanofi pasteur PMC Fluzone [id number] Intramuscular Left Deltoid 06/06/2014 03/26/2014 141 History [...] 2014 3:23PM Cough Dec 01 2014 3:23PM Payers Insurance Name Company Name Plan Name Plan Number Policy Number Policy Group Number Start Date Medicare Part A Medicare Part A [id number] N/A [facility] Comm [id number] Tuesday, 2012 Medicare Part B Medicare Of [place] [id number] N/A [facility] Plan of [place] [facility] Plan of [id number] N/A History of Encounters Visit Date Visit Type Provider 12/10/2014 Office visit Julio Arizmendi MD 12/01/2014 Office visit Jeannie Henao SURVEY RESEARCH ANALYST 11/26/2014 Office visit Gena Arias SURVEY RESEARCH ANALYST 11/20/2014 Office visit Julio Arizmendi MD 11/06/2014 Office visit Julio Arizmendi MD 10/31/2014 Office visit Renetta Chaves SURVEY RESEARCH ANALYST 10/24/2014 Office visit Julio Arizmendi MD 10/10/2014 Office visit Julio Arizmendi MD 09/12/2014 Office visit Julio Arizmendi MD 08/14/2014 Office visit Julio Arizmendi MD 07/25/2014 Office visit Gordon Sainz SURVEY RESEARCH ANALYST 07/17/2014 Office visit Julio Arizmendi MD 06/20/2014 Office visit Julio Arizmendi MD 06/09/2014 Office visit Jeannie Henao SURVEY RESEARCH ANALYST 06/06/2014 Nurse visit Gordon Sainz SURVEY RESEARCH ANALYST 05/23/2014 Office visit Julio Arizmendi MD 05/08/2014 Office visit Julio Arizmendi MD 05/03/2014 Office visit Gordon Sainz SURVEY RESEARCH ANALYST 04/30/2014 Office visit Gordon Sainz SURVEY RESEARCH ANALYST 04/17/2014 Office visit Julio Arizmendi MD 03/22/2014 Office visit Gordon Sainz SURVEY RESEARCH ANALYST 03/12/2014 Office visit Gordon Sainz SURVEY RESEARCH ANALYST 01/15/2014 Office visit Juana Owens SURVEY RESEARCH ANALYST 11/05/2013 Office visit Juana Owens SURVEY RESEARCH ANALYST 09/19/2013 Office visit Julio Arizmendi MD 08/31/2013 Office visit Julio Arizmendi MD 08/16/2013 Office visit Julio Arizmendi MD 08/09/2013 Office visit Julio Arizmendi MD 08/03/2013 Office visit Gena Arias SURVEY RESEARCH ANALYST 08/03/2013 Hospital Julio Arizmendi MD 07/30/2013 Office visit Julio Arizmendi MD 07/25/2013 Office visit Julio Arizmendi MD 07/17/2013 Hospital Julio Arizmendi MD 07/17/2013 [facility] Rama Lay MD 07/10/2013 Office visit Julio Arizmendi MD 07/02/2013 Office visit Julio Arizmendi MD 06/27/2013 Office visit Julio Arizmendi MD 06/20/2013 Office visit Julio Arizmendi MD 06/13/2013 Office visit Julio Arizmendi MD 06/07/2013 Office visit Julio Arizmendi MD 06/07/2013 [facility] Julio Arizmendi MD 06/05/2013 Office visit Juana Owens APRN 08/21/2012 Office visit Juana Owens APRN
--- OUTSIDE RECORDS SUMMARY | 2017-09-25 17:22 | XMS REPORT | Referral Summary ---
Author Author [facility] Organization [facility] Address Unknown Phone Unavailable Care Team Providers Care Operations Specialist Name Role Phone No PCP, Pt States PCP Encounter [facility] [id number] Date(s): 04/30/15 - 04/30/15 [facility] [address] [place] [address] [phone] Discharge Diagnosis: Headache Discharge Diagnosis: Sinusitis Final: HEADACHE Final: UNSPECIFIED SINUSITIS (CHRONIC) Discharge Disposition: 01-Home or Self Care Attending Physician: Leonid House MD Admitting Physician: Leonid House MD Vital Signs Most recent to 1 oldest [Reference Range]: Temperature Oral 36.7 degC [35.8-37.3 degC] (04/30/15 12:51 PM) Peripheral Pulse 66 bpm Rate [60-100 bpm] (04/30/15 12:51 PM) Respiratory Rate 16 br/min [14-20 br/min] (04/30/15 12:51 PM) Blood Pressure 151/90 mmHg [90-140/60-90 mmHg] *HI* (04/30/15 12:51 PM) SpO2 98 % (04/30/15 12:51 PM) Problem List Condition Effective Dates Status Health Status Informant Encounter for (NT) Resolved nuchal translucency scan(Confirmed) Chronic hepatitis Active C(Confirmed) Previous Active delivery affecting , antepartum(Confirmed ) History of migraine Active headaches(Confirmed) History of opioid Active abuse(Confirmed) No Chronic Problems Active (Confirmed) 03/09/14 - 01/29/15 Resolved 8:29 AM Active complicated by tobacco use(Confirmed) Tobacco Active patient user(Confirmed) Allergies, Adverse Reactions, Alerts Substance Reaction Severity Status codeine Adverse Reaction Active metoclopramide Adverse Reaction Active morphine Adverse Reaction Active penicillin Adverse Reaction Active trimipramine Adverse Reaction Active Medications Fioricet Oral, q4hr, 0 Refill(s) Start Date: 06/11/14 Status: Ordered Naprosyn 500 mg oral tablet 500 mg 1 tabs, Oral, BID, as needed for pain, # 20 tabs, 0 Refill(s) Start Date: 04/30/15 Status: Ordered 1 caps, Oral, Daily, 0 Refill(s) Start Date: 06/11/14 Status: Ordered prochlorperazine 5 mg oral tablet tabs, Oral, TID, 0 Refill(s) Start Date: 07/30/14 Status: Ordered promethazine 25 mg oral tablet 25 mg 1 tabs, Oral, q6hr, as needed for nausea/vomiting, # 12 tabs, 0 Refill(s) Start Date: 04/30/15 Status: Ordered Suboxone SubLingual, Daily, 0 Refill(s) Start Date: 06/11/14 Status: Ordered Zofran 0 Refill(s) Start Date: 06/11/14 Status: Ordered Results Chemistry Most recent to 1 oldest [Reference Range]: Screen, Negative Urine NPT (04/30/15 11:45 AM) Immunizations No data available for this section Procedures No data available for this section Social History Social History Type Response Smoking Status Current every day smoker; Type: Cigarettes; Tobacco use per day: 1 Pack Assessment and Plan No data available for this section
--- OUTSIDE RECORDS SUMMARY | 2017-09-25 17:23 | XMS REPORT ---
Author Author [facility] Organization [facility] Address [address] [place], [place] [id number] Care Team Providers Care Campus Recruiting Intern Name Role Phone PCP Unavailable Allergies and [...] 02/18/2015 take 1 tablet by oral route [facility] prn Nausea amoxicillin oral capsule 500 mg [...] is receiving Suboxone from a specialist in [place] baclofen oral tablet 20 mg 03/22/2014 04/21/2014 [...] HC BMI BSA BMI Percentile O2 Sat(%) 12/01/2014 3:20:00 PM 120 mmHg 78 mmHg [...] CVX Influenza 06/06/2014 sanofi pasteur PMC Fluzone [id number] Intramuscular Left Deltoid 06/06/2014 03/26/2014 141 History [...] Date Medicare Part A Medicare Part A [id number] N/A [facility] Comm [id number] Tuesday, 2012 Medicare Part B Medicare Of [place] [id number] N/A [facility] Comm Plan of [id number] N/A History of Encounters Visit Date Visit Type Provider 12/01/2014 Office visit Jeannie Henao GROUNDS/MAINTENANCE SPECIALIST 11/26/2014 Office visit Gena Arias GROUNDS/MAINTENANCE SPECIALIST 11/20/2014 Office visit Julio Arizmendi MD 11/06/2014 Office visit Julio Arizmendi MD 10/31/2014 Office visit Renetta Chaves GROUNDS/MAINTENANCE SPECIALIST 10/24/2014 Office visit Julio Arizmendi MD 10/10/2014 Office visit Julio Arizmendi MD 09/12/2014 Office visit Julio Arizmendi MD 08/14/2014 Office visit Julio Arizmendi MD 07/25/2014 Office visit Gordon Sainz GROUNDS/MAINTENANCE SPECIALIST 07/17/2014 Office visit Julio Arizmendi MD 06/20/2014 Office visit Julio Arizmendi MD 06/09/2014 Office visit Jeannie Henao GROUNDS/MAINTENANCE SPECIALIST 06/06/2014 Nurse visit Gordon Sainz GROUNDS/MAINTENANCE SPECIALIST 05/23/2014 Office visit Julio Arizmendi MD 05/08/2014 Office visit Julio Arizmendi MD 05/03/2014 Office visit Gordon Sainz GROUNDS/MAINTENANCE SPECIALIST 04/30/2014 Office visit Gordon Sainz GROUNDS/MAINTENANCE SPECIALIST 04/17/2014 Office visit Julio Arizmendi MD 03/22/2014 Office visit Gordon Sainz GROUNDS/MAINTENANCE SPECIALIST 03/12/2014 Office visit Gordon Sainz GROUNDS/MAINTENANCE SPECIALIST 01/15/2014 Office visit Juana Owens GROUNDS/MAINTENANCE SPECIALIST 11/05/2013 Office visit Juana Owens GROUNDS/MAINTENANCE SPECIALIST 09/19/2013 Office visit Julio Arizmendi MD 08/31/2013 Office visit Julio Arizmendi MD 08/16/2013 Office visit Julio Arizmendi MD 08/09/2013 Office visit Julio Arizmendi MD 08/03/2013 Office visit Gena Arias GROUNDS/MAINTENANCE SPECIALIST 08/03/2013 Hospital Julio Arizmendi MD 07/30/2013 Office visit Julio Arizmendi MD 07/25/2013 Office visit Julio Arizmendi MD 07/17/2013 Hospital Julio Arizmendi MD 07/17/2013 [facility] Rama Lay MD 07/10/2013 Office visit Julio Arizmendi MD 07/02/2013 Office visit Julio Arizmendi MD 06/27/2013 Office visit Julio Arizmendi MD 06/20/2013 Office visit Julio Arizmendi MD 06/13/2013 Office visit Julio Arizmendi MD 06/07/2013 Office visit Julio Arizmendi MD 06/07/2013 [facility] Juilo Arizmendi MD 06/05/2013 Office visit Juana wOens APRN 08/21/2012 Office visit Juana Owens APRN
--- OUTSIDE RECORDS SUMMARY | 2017-09-25 17:25 | XMS REPORT ---
Author Author [facility] Organization [facility] Address [address] [place], [place] [id number] Care Team Providers Care Trim Operator Name Role Phone PCP Unavailable Allergies [...] q 8 hrs prn nausea oxycodone oral tablet 5 mg 01/16/2015 01/30/2015 One tablet daily Name Start Date Expiration Date SIG Comments [...] is receiving Suboxone from a specialist in [place] baclofen oral tablet 20 mg 03/22/2014 04/21/2014 [...] 7 days oxycodone oral capsule 5 mg 12/31/2014 01/14/2015 take 1 capsule (5 mg) by oral route every 6 hours as needed for pain for 14 days Discontinued Name Start Date Discontinued Date [...] HC BMI BSA BMI Percentile O2 Sat(%) 01/16/2015 4:01:00 PM 140 mmHg 90 mmHg 75 bpm 18 rpm 97.2 F 142.375 lbs 59 in 28.76 kg/m2 1.64 m2 12/31/2014 3:18:00 PM 130 mmHg 83 mmHg 88 bpm 98 F 144 lbs 59 in 29.0842 kg/m 1.6489 m 12/23/2014 10:04:00 AM 142 mmHg 101 mmHg [...] F 157.5 lbs 59 in 31.8108 kg/m 1.72 m2 07/30/2013 1:45:00 PM 126 mmHg 75 mmHg 84 bpm 96.5 F 159 lbs 59 in 32.11 kg/m2 1.7327 m 07/25/2013 1:32:00 PM 121 mmHg 77 mmHg 86 bpm 96.7 F 165 lbs 59 in 33.3256 kg/m 1.77 m2 07/10/2013 1:56:00 PM 129 mmHg 79 mmHg 90 bpm 97.7 F 171 lbs 59 in 34.54 kg/m2 1.7969 m 06/07/2013 3:08:00 PM 139 mmHg 71 mmHg 86 bpm 96.5 F 175 lbs 59 in 35.3454 kg/m 1.82 m2 06/05/2013 10:19:00 AM 119 mmHg 80 mmHg 104 bpm 20 rpm 96.8 F 173 lbs 59 in 34.94 kg/m2 1.8074 m 99 % 08/21/2012 2:27:00 PM 122 mmHg 78 mmHg 71 bpm 20 rpm 96.7 F 141.8 lbs 59 in 28.6398 kg/m 1.64 m2 100 % Social History Name [...] 12/10/2014 12:00 AM COMPREHEN METABOLIC PANEL Returned 12/10/2014 12:00 AM ASSAY OF BLOOD/URIC ACID Reviewed 12/10/2014 12:00 AM LACTATE (LD) (LDH) ENZYME Reviewed 12/31/2014 12:00 AM COMPLETE CBC W/AUTO DIFF WBC Returned 12/31/2014 12:00 AM COMPREHEN METABOLIC PANEL Returned Results [...] #EOS 0.21 #BASO 0.02 EOS 3.0 % 12/31/2014 4:08 PM GLUCOSE 90.0 mg/dLSODIUM 138.0 mmol/LPOTASSIUM 3.50 mmol/ LCHLORIDE 107.0 mmol/LCO2 22.0 mmol/LBUN 14.0 mg/dLCREATININE 1.0 mg/dLSGOT/AST 164.0 IU/LSGPT/ALT 119.0 IU/LALK PHOS 156.0 IU/LTOTAL PROTEIN 6.90 g/dLALBUMIN 3.90 g/dLTOTAL BILI 1.30 mg/dLCALCIUM 8.90 mg/dLeGFR >60 mL/min/1.73 m2WBC 6.7 RBC 4.82 HGB 13.30 g/dLHCT 40.20 %MCV 83.0 fLMCH 27.60 pgMCHC 33.10 g/dLMPV 8.70 fLPLT 280 %NEUT 82.80 %%LYMP 12.30 %#NEUT 5.60 #LYMP 0.80 History Of Immunizations Name Date Admin Mfg Name Mfg Code Trade Name Lot# Route Inj Vis Given Vis Pub CVX Influenza 06/06/2014 sanofi pasteur PMC Fluzone [id number] Intramuscular Left Deltoid 06/06/2014 03/26/2014 141 History [...] 3:22PM Hepatitis C Dec 31 2014 3:22PM Postoperative Follow-Up Exam Jan 16 2015 4:07PM Payers Insurance Name Company Name Plan Name Plan Number Policy Number Policy Group Number Start Date Medicare Part A Medicare Part A [id number] N/A [facility] Comm [id number] Tuesday, 2012 Medicare Part B Medicare Of [place] [id number] N/A [facility] Comm Plan of [id number] N/A History of Encounters Visit Date Visit Type Provider 01/16/2015 Office visit Gena Arias MANAGER OF PMO 12/31/2014 Office visit Julio Arizmendi MD 12/23/2014 Office visit Julio Arizmendi MD 12/19/2014 Office visit Gena Arias MANAGER OF PMO 12/15/2014 Hospital Kerri Kemp MD 12/11/2014 Hospital Julio Arizmendi MD 12/11/2014 [facility] Rama Lay MD 12/10/2014 Office visit Julio Arizmendi MD 12/01/2014 Office visit Jeannie Henao MANAGER OF PMO 11/26/2014 Office visit Gena Arias MANAGER OF PMO 11/20/2014 Office visit Julio Arizmendi MD 11/06/2014 Office visit Julio Arizmendi MD 10/31/2014 Office visit Renetta Chaves MANAGER OF PMO 10/24/2014 Office visit Julio Arizmendi MD 10/10/2014 Office visit Julio Arizmendi MD 09/12/2014 Office visit Julio Arizmendi MD 08/14/2014 Office visit Julio Arizmendi MD 07/25/2014 Office visit Gordon Sainz MANAGER OF PMO 07/17/2014 Office visit Julio Arizmendi MD 06/20/2014 Office visit Julio Arizmendi MD 06/09/2014 Office visit Jeannie Henao MANAGER OF PMO 06/06/2014 Nurse visit Gordon Sainz MANAGER OF PMO 05/23/2014 Office visit Julio Arizmendi MD 05/08/2014 Office visit Julio Arizmendi MD 05/03/2014 Office visit Gordon Sainz MANAGER OF PMO 04/30/2014 Office visit Gordon Sainz MANAGER OF PMO 04/17/2014 Office visit Julio Arizmendi MD 03/22/2014 Office visit Gordon Sainz MANAGER OF PMO 03/12/2014 Office visit Gordon Sainz MANAGER OF PMO 01/15/2014 Office visit Juana Owens MANAGER OF PMO 11/05/2013 Office visit Juana Owens MANAGER OF PMO 09/19/2013 Office visit Julio Arizmendi MD 08/31/2013 Office visit Julio Arizmendi MD 08/16/2013 Office visit Julio Arizmendi MD 08/09/2013 Office visit Julio Arzimendi MD 08/03/2013 Office visit Gena Arias MANAGER OF PMO 08/03/2013 Hospital Julio Arizmendi MD 07/30/2013 Office visit Julio Arizmendi MD 07/25/2013 Office visit Julio Arizmendi MD 07/17/2013 Hospital Julio Arizmendi MD 07/17/2013 [facility] Rama Lay MD 07/10/2013 Office visit Julio Arizmendi MD 07/02/2013 Office visit Julio Arizmendi MD 06/27/2013 Office visit Julio Arizmendi MD 06/20/2013 Office visit Julio Arizmendi MD 06/13/2013 Office visit Julio Arizmendi MD 06/07/2013 Office visit Julio Arizmendi MD 06/07/2013 [facility] Julio Arizmendi MD 06/05/2013 Office visit Juana Owens APRN 08/21/2012 Office visit Juana Owens APRN
--- OUTSIDE RECORDS SUMMARY | 2017-09-25 17:26 | XMS REPORT | Continuity of Care Document ---
Author Author [facility] Organization [facility] Address Unknown Phone Unavailable Allergies Active Description Code Type Severity Reaction Onset Reported/Identified Relationship to Patient Clinical Status Yes Penicillins Drug Allergy Adverse Reaction 09/01/2010 Yes Penicillins Drug Allergy N/A Adverse Reaction 09/01/2010 Yes Haldol Drug Allergy Adverse Reaction 10/06/2010 Yes Haldol Drug Allergy N/A Adverse Reaction 10/06/2010 Yes Seroquel Drug Allergy Mild Adverse Reaction 05/28/2011 Yes Codeine Drug Allergy Moderate Adverse Reaction 01/17/2012 Yes morphine Drug Allergy Moderate Adverse Reaction 01/17/2012 Yes No Known Food Allergies Food Allergy 03/11/2012 Yes Reglan Drug Allergy Moderate Adverse Reaction 06/17/2012 Yes No Known Food Allergies Food Allergy N/A N/A 06/08/2013 Yes haloperidol haloperidol Drug Allergy Severe SWELLING OF THROAT 11/13/2013 Yes Penicillins Penicillins Drug Allergy Moderate RASH 11/13/2013 Yes codeine codeine Drug Allergy Unknown HEADACHE 11/13/2013 Yes morphine morphine Drug Allergy Unknown VOMIT 11/13/2013 Yes metoclopramide metoclopramide Drug Allergy Unknown HYPERTENSION 05/30 Medications There is no data. Problems Date Dx Coded Attending Type Code Diagnosis Diagnosed By 03/11/2012 J Carlos Martinez MD Final 296.80 BIPOLAR DISORDER NOS 03/11/2012 J Carlos Martinez MD Final 300.00 ANXIETY STATE NOS 03/11/2012 J Carlos Martinez MD Final 305.1 TOBACCO USE DISORDER 03/11/2012 J Carlos Martinez MD Final 599.0 URINARY TRACT INF NOS 03/11/2012 J Carlos Martinez MD Final 625.9 FE GENITAL SYMPTOMS NOS 03/11/2012 J Carlos Martinez MD 788.1 DYSURIA 06/17/2012 Aidan West MD Final 296.80 BIPOLAR DISORDER NOS 06/17/2012 Aidan West MD Final 305.1 TOBACCO USE DISORDER 06/17/2012 Aidan West MD Final 784.0 HEADACHE 06/08/2013 Xander ONEILL, Juan Carlos Baker Final 070.70 VH C NOS W/O COMA 06/08/2013 Juan Carlos Terrell MD Final 599.72 MICROSCOPIC HEMATURIA 06/08/2013 Juan Carlos Terrell MD Final 646.83 PREG COMP NEC-AP 06/08/2013 Juan Carlos Terrell MD Final 647.63 OTH VIRUS IN PREG-AP 06/08/2013 Juan Carlos Terrell MD Final 648.23 ANEMIA IN PREG-AP 06/08/2013 Juan Carlos Terrell MD Final 649.03 TOBAC USE COMP PREG-AP 06/08/2013 Juan Carlos Terrell MD Final 654.23 PREVIOUS CD NOS-AP 06/08/2013 Juan Carlos Terrell MD Final 789.09 ABDOMINAL PAIN-SITE NEC 06/08/2013 Juan Carlos Terrell MD Final 790.4 ELEVAT TRANSAMINASE/LDH 06/08/2013 Juan Carlos Terrell MD Final 790.5 ABN SERUM ENZYME LEV NEC 11/13/2013 Aidan De La Vega DO Final 311 DEPRESSIVE DISORDER NEC 11/13/2013 Aidan De La Vega DO Final 338.19 ACUTE PAIN NEC 11/13/2013 Aidan De La Vega DO Final 521.00 DENTAL CARIES NOS 11/13/2013 Aidan De La Vega DO Admitting 525.9 DENTAL DISORDER NOS Procedures There is no data. Results Test Result Range URINALYSIS WITH MICROSCOPIC - 04/08/12 16:30 UA LEUKOCYTE ESTERASE DIPSTICK TRACE NEGATIVE UA NITRITE DIPSTICK NEGATIVE NEGATIVE UA PROTEIN DIPSTICK TRACE NEGATIVE UA GLUCOSE DIPSTICK NEGATIVE NEGATIVE UA KETONE DIPSTICK NEGATIVE NEGATIVE UA UROBILINOGEN DIPSTICK NORMAL NORMAL UA BILIRUBIN DIPSTICK NEGATIVE NEGATIVE UA BLOOD DIPSTICK 1+ NEGATIVE UA BACTERIA 2+ NEGATIVE UA EPITHELIAL CELLS 4+ epi/hpf 0 - 1+ UA MUCUS 2+ NEG TO 1+ UA RBC 3-5 rbc/hpf 0 - 3 UA VOLUME FOR EXAM 12.0 mL (12mL STD) UA WBC 5-10 wbc/hpf 0 - 5 UA SPECIFIC GRAVITY 1.025 1.015-1.025 UR PH 5.0 5.0-7.0 UR TEST - 04/08/12 16:30 UR TEST NEGATIVE NEGATIVE URINE CULTURE - 04/08/12 16:30 ICA_MICRO GONORRHOEA DNA BY PCR - CHLAMYDIA DNA BY PCR - 04/08/12 17:30 ICA_MICRO GRAM STAIN - 08/06/15 14:45 Microbiology Encounters ACCT No. Visit Date/Time Discharge Status Pt. Type Provider Facility Loc./Unit Complaint [id number] 11/13/2013 19:27:00 11/13/2013 20:20:00 DIS Emergency Ceferino ENG, [facility] TERM [id number] 06/08/2013 00:53:00 06/10/2013 12:15:00 DIS Inpatient Juan Carlos Terrell MD [facility] [address] [place] [id number] 06/17/2012 00:54:00 06/17/2012 03:50:00 DIS Emergency Jenna ONEILL, Aidan [facility] [place] FERM [id number] 03/11/2012 00:01:00 03/11/2012 02:07:00 DIS Emergency J Carlos Martinez MD [facility] FERM [id number] 03/17/2015 21:55:34 03/17/2015 23:59:59 CLS Outpatient Gena Arias [id number] 03/17/2015 21:43:10 03/17/2015 23:59:59 CLS Outpatient Julio Arizmendi [id number] 03/17/2015 21:32:07 03/17/2015 23:59:59 CLS Outpatient Julio Arizmendi [id number] 03/17/2015 21:30:09 03/17/2015 23:59:59 CLS Outpatient Kerri Kemp [id number] 03/17/2015 21:28:04 03/17/2015 23:59:59 CLS Outpatient Gena Arias [id number] 03/17/2015 21:26:56 03/17/2015 23:59:59 CLS Outpatient Rama Lay [id number] 03/17/2015 21:26:55 03/17/2015 23:59:59 CLS Outpatient Julio Arizmendi [id number] 12/10/2014 15:08:15 12/10/2014 23:59:59 CLS Outpatient Julio Arizmendi [id number] 12/01/2014 16:15:59 12/01/2014 23:59:59 CLS Outpatient Jeannie Henao [id number] 11/26/2014 12:03:36 11/26/2014 23:59:59 CLS Outpatient Gena Arias [id number] 11/20/2014 11:39:59 11/20/2014 23:59:59 CLS Outpatient Kyleigh Julio Owen [id number] 11/06/2014 16:27:46 11/06/2014 23:59:59 CLS Outpatient KyleighJulio Owen [id number] 10/31/2014 18:13:50 10/31/2014 23:59:59 CLS Outpatient Renetta Chaves [id number] 09/12/2014 15:03:56 09/12/2014 23:59:59 CLS Outpatient Kyleigh Julio Owen [id number] 08/14/2014 15:33:38 08/14/2014 23:59:59 CLS Outpatient Kyleigh Julio Owen [id number] 07/25/2014 18:31:15 07/25/2014 23:59:59 CLS Outpatient Gordon Sainz [id number] 07/17/2014 14:31:36 07/17/2014 23:59:59 CLS Outpatient Julio Arizmendi [id number] 06/20/2014 12:12:35 06/20/2014 23:59:59 CLS Outpatient Julio Arizmendi [id number] 06/09/2014 15:52:52 06/09/2014 23:59:59 CLS Outpatient Jeannie Henao [id number] 06/06/2014 10:56:28 06/06/2014 23:59:59 CLS Outpatient Gordon Sainz [id number] 05/23/2014 09:54:33 05/23/2014 23:59:59 CLS Outpatient Julio Arizmendi [id number] 05/08/2014 14:47:00 05/08/2014 23:59:59 CLS Outpatient Julio Arizmendi [id number] 05/03/2014 12:46:25 05/03/2014 23:59:59 CLS Outpatient Gordon Sainz [id number] 04/30/2014 14:46:07 04/30/2014 23:59:59 SARAH Outpatient Gordon Sainz [id number] 04/17/2014 15:14:28 04/17/2014 23:59:59 CLS Outpatient Julio Arizmendi [id number] 03/22/2014 11:50:57 03/22/2014 23:59:59 CLS Outpatient Gordon Sainz [id number] 03/12/2014 16:22:12 03/12/2014 23:59:59 CLS Outpatient Gordon Sainz [id number] 01/15/2014 14:03:27 01/15/2014 23:59:59 CLS Outpatient Juana Owens [id number] 11/05/2013 14:39:13 11/05/2013 23:59:59 CLS Outpatient Juana Owens [id number] 09/19/2013 15:56:39 09/19/2013 23:59:59 CLS Outpatient Julio Arizmendi Owen [id number] 08/31/2013 12:21:39 08/31/2013 23:59:59 CLS Outpatient BillieJulio guevara Owen [id number] 08/16/2013 15:12:00 08/16/2013 23:59:59 CLS Outpatient KyleighJulio Owen [id number] 08/09/2013 13:24:01 08/09/2013 23:59:59 CLS Outpatient KyleighJulio Owen [id number] 08/09/2013 12:29:30 08/09/2013 23:59:59 CLS Outpatient Kyleigh Julio Owen [id number] 08/03/2013 09:51:34 08/03/2013 23:59:59 CLS Outpatient Gena Arias [id number] 07/30/2013 14:35:49 07/30/2013 23:59:59 CLS Outpatient KyleighJulio Owen [id number] 07/26/2013 12:18:26 07/26/2013 23:59:59 CLS Outpatient KyleighJulio Owen [id number] 07/26/2013 11:15:24 07/26/2013 23:59:59 CLS Outpatient LayFroylan mckoybrie Mosquera [id number] 07/26/2013 11:14:04 07/26/2013 23:59:59 CLS Outpatient KyleighJulio Owen [id number] 07/26/2013 12:17:19 Document Registration [id number] 09/12/2017 12:46:00 09/12/2017 14:32:00 DIS Emergency Manuel Herrera DO [facility] [id number] 12/19/2015 11:41:00 12/19/2015 12:43:[address] DO [facility] [id number] 08/06/2015 13:34:00 08/06/2015 16:05:00 DIS Emergency Tone ONEILL, Maria Ines [facility] [id number] 05/30/2015 18:21:00 05/30/2015 18:55:00 DIS Emergency Gideon ONEILL, Regan Ny [facility] [id number] 05/27/2015 17:59:00 05/27/2015 19:27:00 DIS Emergency Aron ONEILL, [facility] [id number] 03/05/2015 23:36:00 03/06/2015 00:46:00 DIS Emergency Aron ONEILL, [facility] [id number] 12/20/2014 18:15:00 12/20/2014 19:21:00 DIS Emergency Sil ONEILL, [facility] [id number] 12/20/2014 00:00:00 12/20/2014 00:00:[address] [facility] [id number] 11/13/2013 21:01:00 11/13/2013 21:36:00 DIS [id number] 04/19/2012 10:58:00 04/19/2012 13:41:00 DIS Emergency Clemencia ONEILL, [facility] [id number] 04/08/2012 16:16:00 04/08/2012 17:39:00 DIS [facility]
[2017-09-25 19:04] LABS: BILIRUBIN,URINE NEGATIVE (NEGATIVE); CLARITY,URINE SLIGHTLY CLOUDY; COLOR,URINE YELLOW; GLUCOSE, URINE (UA) NEGATIVE (NEGATIVE); KETONES,URINE NEGATIVE (NEGATIVE); LEUKOCYTE ESTERASE ,URINE 2+ (NEGATIVE); NITRITE,URINE NEGATIVE (NEGATIVE); PH,URINE 5 (5-9); PROTEIN,URINE NEGATIVE (NEGATIVE); UROBILINOGEN,URINE NORMAL (NORMAL)
--- NOTE | 2017-09-25 19:18 | ED GU-Female ---
General Chief Complaint: -Female Stated Complaint: ABD PAIN,TROUBLE URINATING Nursing Triage Note: pt c/o lower abd pain starting 4-5 days ago with dysuria et frequency. she reports abd pain is worsening. she is basically unable to urinate at this time. Nursing Sepsis Screen: No Definite Risk Source: patient Exam Limitations: no limitations History of Present Illness Date Seen by Provider: Sep 25, 2017 Time Seen by Provider: 19:10 Initial Comments Patient presents to ER by private conveyance with a chief complaint that she is having some 3 or 4 days worth of painful urination frequency and inability to completely micturate. She says she's had 3 or 4 UTIs her entire life. She is not having any vaginal discharge, fevers, nausea vomiting or chills however she does feel she has a sinus infection at same time because she's having some bilateral frontal maxillary pain but no discharge. She says she's not been drinking very much water and because it hurts when she urinates. Allergies and Home Medications Allergies Coded Allergies: No Known Drug Allergies (Unverified , 09/05/17) Constitutional: No chills, No diaphoresis EENTM: No ear discharge, No ear pain Respiratory: No cough, No phlegm Cardiovascular: No chest pain, No palpitations Gastrointestinal: No abdominal pain, No nausea, No vomiting Genitourinary: burning, denies discharge, dysuria Past Dfgejnu-Pknaym-Wupdug Hx Patient Social History Alcohol Use: Denies Use Recreational Drug Use: No Smoking Status: Former Smoker Type Used: Electronic/Vapor Recent Foreign Travel: No Contact w/Someone Who Travel: No Recent Infectious Disease Expo: No Physical Abuse: No Sexual Abuse: No Reproductive System Last Menstrual Period: Sep 09, 2017 Psychosocial Suicide Risk Score: 0 Physical Exam Vital Signs Vital Signs - First Documented 09/25/17 17:45 Temp 97.7 Pulse 66 Resp 16 B/P (MAP) 127/79 (95) Capillary Refill : Less Than 3 Seconds General Appearance: WD/WN, no apparent distress HEENT: PERRL/EOMI, pharynx normal, other (maxilary TTP) Neck: non-tender, supple, normal inspection Extremities: non-tender, normal inspection, normal capillary refill Neurologic/Psychiatric: alert, oriented x 3 Skin: normal color, warm/dry Progress/Results/Core Measures Suspected Sepsis Recent Fever Within 48 Hours: No Infection Criteria Present: None New/Unexplained Altered Menta: No Sepsis Screen: No Definite Risk Sepsis Diagnosis: SIRS Temperature:97.7 Pulse: 66 Respiratory Rate: 16 Blood Pressure 127 /79 Mean: 95 Results/Orders Lab Results Laboratory Tests Test 09/25/17 18:50 Range/Units Urine Color YELLOW Urine Clarity SLIGHTLY CLOUDY Urine pH 5 5-9 Urine Specific [place] 1.025 H 1.016-1.022 Urine Protein NEGATIVE NEGATIVE Urine Glucose (UA) NEGATIVE NEGATIVE Urine Ketones NEGATIVE NEGATIVE Urine Nitrite NEGATIVE NEGATIVE Urine Bilirubin NEGATIVE NEGATIVE Urine Urobilinogen NORMAL NORMAL MG/DL Urine Leukocyte Esterase 2+ H NEGATIVE Urine RBC (Auto) 3+ H NEGATIVE Urine RBC 5-10 H /HPF Urine WBC 5-10 H /HPF Urine Squamous Epithelial Cells >50 H /HPF Urine Crystals NONE /LPF Urine Bacteria FEW H /HPF Urine Casts NONE /LPF Urine Mucus NEGATIVE /LPF Urine Culture Indicated YES Urine Test NEGATIVE NEGATIVE My Orders Orders - CHRISTINE ANGELA Hcg,Qualitative Urine (09/25/17 19:22) Vital Signs/I&O Vital Sign - Last 12Hours 09/25/17 17:45 Temp 97.7 Pulse 66 Resp 16 B/P (MAP) 127/79 (95) Capillary Refill : Less Than 3 Seconds Blood Pressure Mean: 95 Departure Impression Impression: Primary Impression: Urinary tract infection Qualified Codes: N30.01 - Acute cystitis with hematuria Additional Impression: Maxillary sinusitis, acute Qualified Codes: J01.00 - Acute maxillary sinusitis, unspecified Disposition: HOME, SELF-CARE Condition: Stable Departure-Patient Inst. Decision time for Depature: 19:36 Referrals: [facility]MARY CARMEN (PCP) Primary Care Physician ARNULFO TORRES APRN (Family) Primary Care Physician Patient Instructions: Urinary Tract Infection, Adult (DC) Add. Discharge Instructions: Drink lots of fluids. You can use AZO ejel-tce-yjmboon medicine as needed for urinary tract pain for the next 4 days. After that you need to go off it for a few weeks. Lots of fluids to drain out and flush out your sinuses will be helpful as well. 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 All discharge instructions reviewed with patient and/or family. Voiced understanding. Scripts Cefdinir (Cefdinir) 300 Mg Capsule 300 MG PO BID for 7 Days, #14 CAP 0 Refills Prov: CHRISTINE ANGELA 09/25/17 Copy Copies To 1: CARTER BARROS TITUS J Sep 25, 2017 19:18
[2017-09-25 19:27] LABS: BACTERIA,URINE FEW /HPF
[2017-09-25 19:28] LABS: SQUAMOUS EPITHELIAL CELL,UR >50 /HPF
[2017-09-25] MEDS ORDERED: CEFD300C3 PO (19:40)
[2017-09-25 19:51] VITALS: BP 127/79
== END 2017-09-25 19:51 | disposition home or self-care (01) ==
LOC: EDUNIT# 17:02 → ER 17:04
DX: N39.0 Urinary tract infection, site not specified (principal); J01.00 Acute maxillary sinusitis, unspecified; Z87.891 Personal history of nicotine dependence
CPT/HCPCS: 81000; 84703; 87088; 99282

== ENCOUNTER 2017-11-13 16:54 | Emergency (ER) | payer MEDICARE, MEDICAID ==
[~2017-11-13] VITALS: Ht 152.4 cm; Wt 74.8 kg
[~2017-11-13 16:54] MED LIST changes: +CEFD300C3 PO; -GADOBUTROL 7.5 MMOL/7.5 ML (GADAVIST) VIAL IV ONE
[2017-11-13] MEDS ORDERED: IBUPROFEN 800 MG (MOTRIN) TAB PO STA (17:02)
--- NOTE | 2017-11-13 17:11 | ED GU-Female ---
General Chief Complaint: Abdominal/GI Problems Stated Complaint: ABD PAIN Nursing Triage Note: ARRIVED VIA AMB TO ROOM 05 WITH COMPLAINTS OF LOWER ABDPAIN/CRAMPING X2 DAYS. Nursing Sepsis Screen: No Definite Risk Source: patient Exam Limitations: no limitations History of Present Illness Date Seen by Provider: Nov 13, 2017 Time Seen by Provider: 16:55 Initial Comments Here with report of lower abdominal pain cramping for the last 2 days. Reports frequency of urination of small amounts. Denies any burning, fever, vomiting or diarrhea. Denies vaginal discharge or bleeding. Timing/Duration: getting worse, other (2 days) Severity/Quality: moderate, aching, cramping Location: suprapubic Radiation: RLQ, LLQ Activities at Onset: none Prior Genitourinary Problems: none Sexual Regan History: not active Modifying Factors: Worsens With Urinating Associated Symptoms: abdominal pain, No diaphoresis, No dysuria, No fever/ chills, No lower back pain, No nausea/vomiting, urinary frequency Allergies and Home Medications Allergies Coded Allergies: No Known Drug Allergies (Unverified , 09/05/17) Patient Home Medication List Home Medication List Reviewed: Yes Review of Systems Constitutional: see HPI, No chills, No fever EENTM: no symptoms reported Respiratory: no symptoms reported Cardiovascular: no symptoms reported Gastrointestinal: abdominal pain, jaundice, No nausea, No vomiting Genitourinary: see HPI : No Musculoskeletal: no symptoms reported Skin: no symptoms reported Past Vetuwul-Kdonrp-Eupebq Hx Past Med/Social Hx: Reviewed Nursing Past Med/Soc Hx Patient Social History Alcohol Use: Denies Use Recreational Drug Use: No Smoking Status: Former Smoker Type Used: Electronic/Vapor Recent Foreign Travel: No Contact w/Someone Who Travel: No Recent Infectious Disease Expo: No Past Medical History Surgeries: Yes Abdominal, Section, Gallbladder Respiratory: No Cardiac: Yes Hypertension Neurological: No Genitourinary: No Gastrointestinal: No Musculoskeletal: No Endocrine: No HEENT: No Psychosocial: Yes Anxiety Family Medical History Reviewed Nursing Family Hx No Pertinent Family Hx Physical Exam Vital Signs Vital Signs - First Documented 11/13/17 16:55 Temp 97.7 Pulse 59 Resp 18 B/P (MAP) 138/87 (104) Pulse Ox 97 O2 Delivery Room Air Capillary Refill : Less Than 3 Seconds General Appearance: WD/WN, no apparent distress Neck: full range of motion, supple Cardiovascular: regular rate, rhythm, no murmur Respiratory: lungs clear, normal breath sounds Gastrointestinal: soft, No guarding, No rebound, tenderness (suprapubic mostly and lower abdomen lateral to a lesser extent) Back: normal inspection, no CVA tenderness, no vertebral tenderness Extremities: non-tender, normal inspection Neurologic/Psychiatric: alert, oriented x 3 Skin: normal color, warm/dry Progress/Results/Core Measures Suspected Sepsis Recent Fever Within 48 Hours: No Infection Criteria Present: None New/Unexplained Altered Menta: No Sepsis Screen: No Definite Risk Sepsis Diagnosis: SIRS Temperature:97.7 Pulse: 59 Respiratory Rate: 18 Blood Pressure 138 /87 Mean: 104 Results/Orders Lab Results Laboratory Tests Test 11/13/17 15:06 Range/Units Urine Color YELLOW Urine Clarity CLEAR Urine pH 6.5 5-9 Urine Specific Granger 1.010 L 1.016-1.022 Urine Protein NEGATIVE NEGATIVE Urine Glucose (UA) NEGATIVE NEGATIVE Urine Ketones NEGATIVE NEGATIVE Urine Nitrite POSITIVE H NEGATIVE Urine Bilirubin NEGATIVE NEGATIVE Urine Urobilinogen NORMAL NORMAL MG/DL Urine Leukocyte Esterase NEGATIVE NEGATIVE Urine RBC (Auto) NEGATIVE NEGATIVE Urine RBC NONE /HPF Urine WBC 0-2 /HPF Urine Squamous Epithelial Cells 2-5 /HPF Urine Renal Epithelial Cells NONE /HPF Urine Crystals NONE /LPF Urine Bacteria NEGATIVE /HPF Urine Casts NONE /LPF Urine Mucus NEGATIVE /LPF Urine Culture Indicated YES My Orders Orders - BI HINES MD Ibuprofen Tablet (Motrin Tablet) (11/13/17 17:02) Ua Culture If Indicated (11/13/17 17:02) Urine Bedside (11/13/17 17:02) Urine Culture (11/13/17 15:06) Cephalexin Capsule (Keflex Capsule) (11/13/17 17:31) Vital Signs/I&O 11/13/17 16:55 Temp 97.7 Pulse 59 Resp 18 B/P (MAP) 138/87 (104) Pulse Ox 97 O2 Delivery Room Air Capillary Refill : Less Than 3 Seconds Blood Pressure Mean: 104 Progress Note : Progress Note Seen and evaluated. UA and ibuprofen 800 mg by mouth ordered. Monitor patient. 0532: Patient does show findings of nitrite-positive urinary tract infection. Keflex 500 mg by mouth. Discharged home with return precautions. Patient verbalize understanding instructions and agreement with plan. Departure Impression Primary Impression: Urinary tract infection Qualified Codes: N30.00 - Acute cystitis without hematuria Disposition: HOME, SELF-CARE Condition: Improved Departure-Patient Inst. Decision time for Depature: 17:32 Referrals: NO,LOCAL PHYSICIAN (PCP/Family) Primary Care Physician Patient Instructions: Urinary Tract Infection, Adult (DC) Add. Discharge Instructions: All discharge instructions reviewed with patient and/or family. Voiced understanding. You may take Tylenol/acetaminophen 1000 mg every 8 hours as needed for pain. You may take ibuprofen 800 mg every 8 hours as needed for pain. Drink plenty of fluids. Return for worse pain, fever, vomiting, weakness, breathing problems or other concerns as needed. Scripts Cephalexin (Cephalexin) 500 Mg Tablet 500 MG PO BID, #13 TAB 0 Refills Prov: BI HINES MD 11/13/17 BI HINES MD Nov 13, 2017 17:11
[2017-11-13 17:12] LABS: BILIRUBIN,URINE NEGATIVE (NEGATIVE); CLARITY,URINE CLEAR; COLOR,URINE YELLOW; GLUCOSE, URINE (UA) NEGATIVE (NEGATIVE); KETONES,URINE NEGATIVE (NEGATIVE); LEUKOCYTE ESTERASE ,URINE NEGATIVE (NEGATIVE); NITRITE,URINE POSITIVE (NEGATIVE); PH,URINE 6.5 (5-9); PROTEIN,URINE NEGATIVE (NEGATIVE); UROBILINOGEN,URINE NORMAL (NORMAL)
[2017-11-13] MEDS ORDERED: ATENOLOL (17:16)
[2017-11-13] MEDS ORDERED: HYDROXAZINE (17:16)
--- OUTSIDE RECORDS SUMMARY | 2017-11-13 17:16 | XMS REPORT | Continuity of Care Document ---
Author Author [facility] Organization [facility] Address Unknown Phone Unavailable Allergies Active Description Code Type Severity Reaction Onset Reported/Identified Relationship to Patient Clinical Status Yes CODEINE [id number] Drug Allergy Moderate VOMITING Yes HALDOL [id number] Drug Allergy Moderate SWELLING Yes MORPHINE 24983511 Drug Allergy Moderate NAUSEA Yes PCN (penicillin) 40427301 Drug Allergy Moderate RASH Yes REGLAN [id number] Drug Allergy Moderate HYPOTENSION Yes NKDA N/A N/A Yes Penicillins Drug Allergy Adverse Reaction 09/01/2010 [...] morphine Drug Allergy Unknown VOMIT 11/13/2013 Yes codeine NKMA N/A Adverse Reaction 12/06/2013 Yes metoclopramide NKMA N/A Adverse Reaction 12/06/2013 Yes morphine NKMA N/A Adverse Reaction 12/06/2013 Yes penicillin NKMA N/A Adverse Reaction 12/06/2013 Yes trimipramine NKMA N/A Adverse Reaction 12/06/2013 Yes codeine NKMA N/A Adverse Reaction 03/24/2015 Yes metoclopramide NKMA N/A Adverse Reaction 03/24/2015 Yes morphine NKMA N/A Adverse Reaction 03/24/2015 Yes penicillin NKMA N/A Adverse Reaction 03/24/2015 Yes trimipramine NKMA N/A Adverse Reaction 03/24/2015 Yes metoclopramide metoclopramide Drug Allergy Unknown HYPERTENSION 05/30 Yes No Known Drug Allergies [id number] Drug Allergy Unknown N/A 09/05/2017 Medications Medication Packaging Start Date Stop Date Route Dosage Sig PROMETHAZINE HCL ORAL 09/24/2015 09/27/2015 ORAL 1212 every 6 hours MELATONIN ORAL 09/24/2015 10/04/2015 ORAL 1010 at bedtime KLONOPIN ORAL 09/24/2015 10/04/2015 ORAL 3030 three times daily IBUPROFEN ORAL 09/24/2015 10/04/2015 ORAL 3030 3 times a day DIFLUCAN ORAL 09/24/2015 09/25/2015 ORAL 11 NOW [id number] ORAL 09/2410/04/2015 ORAL 6060 q4-6h BUSPIRONE HCL ORAL 09/24/2015 10/14/2015 ORAL 6060 twice daily AMOXICILLIN ORAL 09/24/2015 10/04/2015 ORAL [id number] three times daily ADDERALL ORAL 09/24/2015 ORAL 3030 twice daily BUSPIRONE HCL ORAL 10/14/2015 ORAL 6060 twice daily KETOROLAC (TORADOL) INJ : 60MG/2ML 03/29/2016 03/29/2016 INJ 60 MG CEFTRIAXONE (ROCEPHIN) INJ : 1GM IM 03/29/2016 03/29/2016 INJ 1 GM KETOROLAC (TORADOL) INJ : 60MG/2ML 05/24/2016 05/24/2016 INJ 60 MG DIPHENHYDRAMINE (BENADRYL) CAP : 25MG UD 05/24/2016 05/24/2016 TAB 50 MG PROMETH (PHENERGAN) INJ :25MG IM X1 ER 05/24/2016 05/24/2016 INJ 25 MG CEPHALEXIN (KEFLEX) CAP : 500MG UD 05/24/2016 CAP 500 MG Problems Date Dx Coded Attending Type Code [...] Aidan West MD Final 784.0 HEADACHE 06/08/2013 Richard Terrell MD Final 070.70 VH C NOS W/O COMA 06/08/2013 Richard Terrell MD Final 599.72 MICROSCOPIC HEMATURIA 06/08/2013 Richard Terrell MD Final 646.83 PREG COMP NEC-AP 06/08/2013 Richard Terrell MD Final 647.63 OTH VIRUS IN PREG-AP 06/08/2013 Richard Terrell MD Final 648.23 ANEMIA IN PREG-AP 06/08/2013 Richard Terrell MD Final 649.03 TOBAC USE COMP PREG-AP 06/08/2013 Richard Terrell MD Final 654.23 PREVIOUS CD NOS-AP 06/08/2013 Richard Terrell MD Final 789.09 ABDOMINAL PAIN-SITE NEC 06/08/2013 Richard Terrell MD Final 790.4 ELEVAT TRANSAMINASE/LDH 06/08/2013 Richard Terrell MD Final 790.5 ABN SERUM ENZYME LEV NEC 11/13/2013 Aidan De La Vega DO Final 311 DEPRESSIVE DISORDER NEC 11/13/2013 Aidan De La Vega DO Final 338.19 ACUTE PAIN NEC 11/13/2013 Aidan De La Vega DO Final 521.00 DENTAL CARIES NOS 11/13/2013 Aidan De La Vega DO Admitting 525.9 DENTAL DISORDER NOS 05/01/2015 Leonid House MD Final 473.9 UNSPECIFIED SINUSITIS (CHRONIC) 05/01/2015 Leonid House MD Final 784.0 HEADACHE 05/01/2015 Leonid House MD Reason 787.01 NAUSEA WITH VOMITING 01/28/2016 F F15.99 Other stimulant use, unspecified with unspecified stimulant-induced disorder David White 01/28/2016 F F15.99 Other stimulant use, unspecified with unspecified stimulant-induced disorder Paulina Johnson 01/28/2016 F Z59.0 Homelessness Paulina Johnson 01/29/2016 F F29 Unspecified psychosis not due to a substance or known physiological condition Paulina Johnson 01/29/2016 F F29 Unspecified psychosis not due to a substance or known physiological condition David White 01/29/2016 F Z59.0 Homelessness David White 01/29/2016 F Z59.5 Extreme poverty David White 09/06/2017 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 Ot D35.2 BENIGN NEOPLASM OF PITUITARY GLAND 09/06/2017 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 Ot R51 HEADACHE 09/25/2017 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 Ot D35.2 BENIGN NEOPLASM OF PITUITARY GLAND 09/25/2017 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 Ot R51 HEADACHE 09/25/2017 JULIO CÉSAR ONEILL, CHRISTINE J Ot J01.00 ACUTE MAXILLARY SINUSITIS, UNSPECIFIED 09/25/2017 JULIO CÉSAR ONEILL, CHRISTINE J Ot N39.0 URINARY TRACT INFECTION, SITE NOT SPECIF 09/25/2017 JULIO CÉSAR ONEILL, CHRISTINE J Ot R30.0 DYSURIA 09/25/2017 JULIO CÉSAR ONEILL, CHRISTINE J Ot Z87.891 PERSONAL HISTORY OF NICOTINE DEPENDENCE 09/27/2017 JULIO CÉSAR ONEILL, CHRISTINE J Ot J01.00 ACUTE MAXILLARY SINUSITIS, UNSPECIFIED 09/27/2017 JULIO CÉSAR ONEILL, CHRISTINE J Ot N39.0 URINARY TRACT INFECTION, SITE NOT SPECIF 09/27/2017 JULIO CÉSAR ONEILL, CHRISTINE J Ot R30.0 DYSURIA 09/27/2017 JULIO CÉSAR ONEILL, CHRISTINE J Ot Z87.891 PERSONAL HISTORY OF NICOTINE DEPENDENCE 09/29/2017 ARNULFO 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 Ot D35.2 BENIGN NEOPLASM OF PITUITARY GLAND 09/29/2017 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 Ot R51 HEADACHE 10/01/2017 JULIO CÉSAR ONEILL, CHRISTINE J Ot J01.00 ACUTE MAXILLARY SINUSITIS, UNSPECIFIED 10/01/2017 JULIO CÉSAR ONEILL, CHRISTINE J Ot N39.0 URINARY TRACT INFECTION, SITE NOT SPECIF 10/01/2017 JULIO CÉSAR ONEILL, CHRISTINE J Ot R30.0 DYSURIA 10/01/2017 JULIO CÉSAR ONEILL, CHRISTINE J Ot Z87.891 PERSONAL HISTORY OF NICOTINE DEPENDENCE 10/19/2017 ARNULFO 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 Ot D35.2 BENIGN NEOPLASM OF PITUITARY GLAND 10/19/2017 TORRESARNULFO De Dios APRN Ot R51 HEADACHE Procedures Code Description Performed By Performed On H2011 David White 01/28/2016 Results Test Result Range URINALYSIS WITH MICROSCOPIC [...] ICA_MICRO GRAM STAIN - 08/06/15 14:45 Microbiology THYROID PEROXIDASE ANTIBODIES - 07/14/17 08:41 THYROID PEROXIDASE ANTIBODIES 1 IU/mL <9 HEP C PCR QUANT (Graph)-APPROVAL REQUIRED - 08/09/17 09:46 HCV RNA, QUANTITATIVE REAL TIME PCR <15 NOT DETECTED IU/mL <15 HCV RNA, QUANTITATIVE REAL TIME PCR <1.18 NOT DETECTED Log IU/mL <1.18 COMMENT NRG TSH - 08/31/17 11:20 TSH 3.24 mIU/L NRG Complete urinalysis with reflex to culture - 09/25/17 18:50 Urine color determination YELLOW NRG Urine clarity determination SLIGHTLY CLOUDY NRG Urine pH measurement by test strip 5 5-9 Specific gravity of urine by test strip 1.025 1.016- 1.022 Urine protein assay by test strip, semi-quantitative NEGATIVE NEGATIVE Urine glucose detection by automated test strip NEGATIVE NEGATIVE Erythrocytes detection in urine sediment by light microscopy 3+ NEGATIVE Urine ketones detection by automated test strip NEGATIVE NEGATIVE Urine nitrite detection by test strip NEGATIVE NEGATIVE Urine total bilirubin detection by test strip NEGATIVE NEGATIVE Urine urobilinogen measurement by automated test strip (mass/volume) NORMAL NORMAL Urine leukocyte esterase detection by dipstick 2+ NEGATIVE Automated urine sediment erythrocyte count by microscopy (number/high power field) [HPF] NRG Automated urine sediment leukocyte count by microscopy (number/high power field ) [HPF] NRG Bacteria detection in urine sediment by light microscopy FEW NRG Squamous epithelial cells detection in urine sediment by light microscopy >50 NRG Crystals detection in urine sediment by light microscopy NONE NRG Casts detection in urine sediment by light microscopy NONE NRG Mucus detection in urine sediment by light microscopy NEGATIVE NRG Complete urinalysis with reflex to culture YES NRG Urine beta human chorionic gonadotropin (hCG) measurement - 09/25/17 18:50 Urine beta human chorionic gonadotropin (hCG) measurement NEGATIVE NEGATIVE Bacterial urine culture - 09/25/17 18:50 Bacterial urine culture [id number] NRG COLONY COUNT 10,000/ML - 100,000/ML NRG FTX;REPORTABLE PLUS, NRG FREE TEXT ENTRY 2 MIXED GRAM POSITIVES <10,000/ML NRG CULTURE, GENITAL - 09/27/17 17:39 CULTURE, GENITAL SEE NOTE NRG Encounters ACCT No. Visit Date/Time Discharge Status Pt. Type Provider Facility Loc./Unit Complaint [id number] 11/13/2013 19:27:00 11/13/2013 20:20:00 DIS Emergency Aidan De La Vega DO [facility] on [facility] TERM [id number] 06/08/2013 00:53:00 06/10/2013 12:15:00 DIS Inpatient [id number] 06/17/2012 00:54:00 06/17/2012 03:50:00 DIS Emergency Aidan West MD [facility] on [facility] [id number] 03/11/2012 00:01:00 03/11/2012 02:07:00 DIS Emergency J Carlos Martinez MD [facility] on [facility] [id number] 03/10/2016 15:41:13 03/10/2016 23:59:59 CLS Outpatient MALIK QUACH MD [id number] 03/17/2015 21:55:34 03/17/2015 23:59:59 CLS Outpatient Gena Arias [id number] 03/17/2015 21:43:10 03/17/2015 23:59:59 CLS Outpatient Julio Arizmendi [id number] 03/17/2015 21:32:07 03/17/2015 23:59:59 CLS Outpatient Julio Arizmendi [id number] 03/17/2015 21:30:09 03/17/2015 23:59:59 CLS Outpatient Kerri Kemp [id number] 03/17/2015 21:28:04 03/17/2015 23:59:59 CLS Outpatient Gena Arias [id number] 03/17/2015 21:26:56 03/17/2015 23:59:59 CLS Outpatient Rama Lay [id number] 03/17/2015 21:26:55 03/17/2015 23:59:59 CLS Outpatient Julio Arizmendi [id number] 12/10/2014 15:08:15 12/10/2014 23:59:59 CLS Outpatient Julio Arizmnedi [id number] 12/01/2014 16:15:59 12/01/2014 23:59:59 CLS Outpatient Jeannie Henao [id number] 11/26/2014 12:03:36 11/26/2014 23:59:59 CLS Outpatient Omar Ariasie Ita [id number] 11/20/2014 11:39:59 11/20/2014 23:59:59 CLS Outpatient Julio Arizmendi [id number] 11/06/2014 16:27:46 11/06/2014 23:59:59 CLS Outpatient Julio Arizmendi [id number] 10/31/2014 18:13:50 10/31/2014 23:59:59 CLS Outpatient Renetta Chaves [id number] 09/12/2014 15:03:56 09/12/2014 23:59:59 CLS Outpatient Julio Arizmendi [id number] 08/14/2014 15:33:38 08/14/2014 23:59:59 CLS Outpatient Julio Arizmendi [id number] 07/25/2014 18:31:15 07/25/2014 23:59:59 CLS Outpatient Gordon Sainz [id number] 07/17/2014 14:31:36 07/17/2014 23:59:59 CLS Outpatient Julio Arizmendi [id number] 06/20/2014 12:12:35 06/20/2014 23:59:59 CLS Outpatient Julio Arizmendi [id number] 06/09/2014 15:52:52 06/09/2014 23:59:59 CLS Outpatient Jeannie Henao [id number] 06/06/2014 10:56:28 06/06/2014 23:59:59 CLS Outpatient Emeli Gordon [id number] 05/23/2014 09:54:33 05/23/2014 23:59:59 CLS Outpatient Julio Arizmendi [id number] 05/08/2014 14:47:00 05/08/2014 23:59:59 CLS Outpatient Julio Arizmendi [id number] 05/03/2014 12:46:25 05/03/2014 23:59:59 CLS Outpatient Gordon Sainz [id number] 04/30/2014 14:46:07 04/30/2014 23:59:59 CLS Outpatient Gordon Sainz [id number] 04/17/2014 15:14:28 04/17/2014 23:59:59 CLS Outpatient Julio Arizmendi [id number] 03/22/2014 11:50:57 03/22/2014 23:59:59 CLS Outpatient Gordon Sainz [id number] 03/12/2014 16:22:12 03/12/2014 23:59:59 CLS Outpatient Gordon Sainz [id number] 01/15/2014 14:03:27 01/15/2014 23:59:59 CLS Outpatient Juana Owens [id number] 11/05/2013 14:39:13 11/05/2013 23:59:59 CLS Outpatient Juana Owens [id number] 09/19/2013 15:56:39 09/19/2013 23:59:59 CLS Outpatient Julio Arizmendi [id number] 08/31/2013 12:21:39 08/31/2013 23:59:59 CLS Outpatient Julio Arizmendi [id number] 08/16/2013 15:12:00 08/16/2013 23:59:59 CLS Outpatient Julio Arizmendi [id number] 08/09/2013 13:24:01 08/09/2013 23:59:59 CLS Outpatient Julio Arizmendi [id number] 08/09/2013 12:29:30 08/09/2013 23:59:59 CLS Outpatient Julio Arizmendi [id number] 08/03/2013 09:51:34 08/03/2013 23:59:59 CLS Outpatient Gena Arias [id number] 07/30/2013 14:35:49 07/30/2013 23:59:59 CLS Outpatient Julio Arizmendi [id number] 07/26/2013 12:18:26 07/26/2013 23:59:59 CLS Outpatient Julio Arizmendi [id number] 07/26/2013 11:15:24 07/26/2013 23:59:59 CLS Outpatient Rama Lay [id number] 07/26/2013 11:14:04 07/26/2013 23:59:59 CLS Outpatient Julio Arizmendi [id number] 07/26/2013 12:17:19 Document Registration [id number] 10/28/2017 15:51:52 ACT Document Registration [id number] 10/17/2017 12:16:00 10/17/2017 12:33:00 DIS Emergency [facility]ILL[facility] [id number] 09/12/2017 12:46:00 09/12/2017 14:32:00 DIS Emergency [facility] [id number] 12/19/2015 11:41:00 12/19/2015 12:43:[address] [facility] [id number] 08/06/2015 13:34:00 08/06/2015 16:05:00 DIS Emergency Tone ONEILL, Maria Ines [facility] [id number] 05/30/2015 18:21:00 05/30/2015 18:55:00 DIS Emergency Gideon [facility]ILL, [facility] [id number] 05/27/2015 17:59:00 05/27/2015 19:27:00 DIS [facility] [id number] 03/05/2015 23:36:00 03/06/2015 00:46:00 DIS Emergency [facility] [id number] 12/20/2014 18:15:00 12/20/2014 19:21:00 DIS Emergency Sil ONEILL, [facility] [id number] 12/20/2014 00:00:00 12/20/2014 00:00:00 CAN Emergency [facility] W.ED [id number] 11/13/2013 21:01:00 11/13/2013 21:36:00 DIS Emergency Manuel Herrera DO [facility] W.KAMAR [id number] 04/19/2012 10:58:00 04/19/2012 13:41:00 DIS Emergency Clemencia ONEILL, Regan [facility] [id number] 04/08/2012 16:16:00 04/08/2012 17:39:00 DIS Emergency Matt ONEILL, Germain Ita [facility] W.EDW [id number] 07/30/2014 12:37:00 07/30/2014 23:59:00 DIS Outpatient Richard Terrell [facility] S Calista MFM 7 wk anatomy f/u from gabriel 5.9.15 [id number] 07/12/2015 18:26:00 07/12/2015 23:59:59 CLS Emergency Leonid House MD [facility] on [facility] ED Meth use [id number] 07/04/2015 18:17:00 07/04/2015 23:59:59 CLS Emergency J Carlos Martinez MD [facility] on [facility] ED general medical [id number] 04/30/2015 11:13:00 04/30/2015 12:52:00 DIS Emergency Leonid House MD [facility] on [facility] ED HOWELL, nausea [id number] 01/28/2016 14:06:00 01/28/2016 23:59:59 CLS Outpatient [id number] 11/10/2017 15:19:00 11/10/2017 23:59:59 CLS Preadmit RICHARD TRIPP DO [facility] RAD N93.9 AUB [id number] 09/25/2017 17:04:00 09/25/2017 19:51:00 DIS Emergency CHRISTINE ANGELA MD [facility] ER ABD PAIN,TROUBLE URINATING [id number] 09/05/2017 09:34:00 09/05/2017 23:59:59 CLS Outpatient ARNULFO TORRES APRN [facility] RAD PITUITARY MICROADENOMA [id number] 05/24/2016 18:26:00 05/24/2016 19:42:00 DIS Emergency TOO CEE [facility] 042 [id number] 03/29/2016 19:56:00 03/29/2016 21:12:00 DIS Emergency DONG GALINDO [facility] [id number] 03/19/2016 06:37:52 03/19/2016 06:37:52 DIS Outpatient [facility] [id number] 09/28/2017 15:30:00 09/28/2017 23:59:59 CLS [facility] [id number] 09/27/2017 17:00:00 Document Registration [id number] 08/31/2017 11:20:00 Document Registration [id number] 08/09/2017 10:00:00 Document Registration [id number] 07/14/2017 08:20:00 Document Registration
[2017-11-13 17:27] LABS: BACTERIA,URINE NEGATIVE /HPF; WBC,URINE 0-2 /HPF
[2017-11-13] MEDS ORDERED: CEPHALEXIN 250 MG (KEFLEX) CAP PO STA (17:31)
[2017-11-13] MEDS ORDERED: CEPH500T PO (17:33)
[2017-11-13 17:40] VITALS: BP 138/87
[2017-11-13] MEDS ORDERED: PHENAZOPYRIDINE 100 MG (PYRIDIUM) TABLET PO ONE (17:45)
== END 2017-11-13 17:40 | disposition home or self-care (01) ==
LOC: EDUNIT# 16:54 → ER 16:55
DX: N39.0 Urinary tract infection, site not specified (principal); I10 Essential (primary) hypertension; F41.9 Anxiety disorder, unspecified; Z87.891 Personal history of nicotine dependence
CPT/HCPCS: 81000; 84703; 87088; 99283

== ENCOUNTER → 2017-11-24 | Outpatient (CLI) | payer MEDICARE, MEDICAID ==
[~2017-11-24] MED LIST changes: +ATENOLOL; +CEPH500T PO; +HYDROXAZINE
--- NOTE | 2017-11-24 15:02 | Diagnostic Imaging Report ---
PATIENT HISTORY: Pelvic pain, dyspareunia, abnormal uterine bleeding. TECHNIQUE: Grayscale and Doppler ultrasound was performed of the pelvis with transabdominal and transvaginal ultrasound. COMPARISON: None. FINDINGS: The uterus is normal in size, measuring 8.6 x 5.6 x 4.6 cm. No discrete masses are seen. The endometrium measures 6 mm in thickness, which is within normal limits. No significant endometrial fluid is seen. Vascularity is unremarkable. The right ovary measures 2.5 x 2.2 x 2.9 cm in size and demonstrates normal vascularity. No right adnexal masses are seen. The left ovary is not seen transvaginally due to bowel gas, however the left ovary appears normal transabdominally, measuring 2.1 x 3.6 x 1.8 cm. No free fluid is seen in the pelvis. IMPRESSION: Unremarkable pelvic sonogram. Dictated by: Dictated on workstation # [id number]
== END ==
LOC: RAD 12:41
PROVIDERS: ATTEND Obstetrics & Gynecology
DX: N93.9 Abnormal uterine and vaginal bleeding, unspecified (principal); N94.10 Unspecified dyspareunia; R23.2 Flushing
CPT/HCPCS: 76830; 76856